=== PATIENT | female | born 1930 | race Caucasian/White ===

== ENCOUNTER 2017-06-03 05:15 | Inpatient (IN) ==
[2017-06-03] MEDS ORDERED: NS 1,000 ML IV ONE (05:21)
[2017-06-03] MEDS ORDERED: ALBUTEROL/IPRATROPIUM 2.5mg-0.5mg/3ml NEB AEROSOL ONE (05:21)
--- OUTSIDE RECORDS SUMMARY | 2017-06-03 05:23 | External Medical Summary | Clinical Summary ---
:1930 Author Organization [facility] Address [address] [place] [address] Phone Care Team Providers Name Role Phone Unavailable Primary Care Provider Unavailable Source Comments Some departments are not documenting in the electronic medical record. If you do not see the information that you expected, contact Release of Information in the Health Information Management department at [phone] for further assistance in locating additional records.[facility] Allergies Active Allergy Reactions Severity Noted Date Comments Cephalexin 02/28/2006 Allergy recorded in SMS: KEFLEX Cephalosporins 02/28/2006 Allergy recorded in SMS: Pcn/Cephalospor Codeine 02/28/2006 Allergy recorded in SMS: Codeine Erythromycin 02/28/2006 Allergy recorded in SMS: ERYTHROMYCIN Iodine 02/28/2006 Allergy recorded in SMS: Iodine Penicillins 02/28/2006 Allergy recorded in SMS: Pcn/Cephalospor Sulfa (Sulfonamide 02/28/2006 Allergy recorded in SMS: Antibiotics) Sulfa Social History Tobacco Use Types Packs/Day Years Used Date Never Assessed Sex Assigned at Date Recorded Not on file Plan of Treatment Health Maintenance Due Date Last Done Comments PHYSICAL (COMPREHENSIVE) EXAM 1937 PERTUSSIS VACCINE 1942 TETANUS VACCINE 1948 SHINGLES VACCINE 1991 OSTEOPOROSIS SCREENING 1996 PREVNAR/PNEUMOVAX (#1) 1996 INFLUENZA VACCINE 11/27/2016
--- NOTE | 2017-06-03 05:27 | Emergency Department Report ---
Asthma HPI - General Stated Complaint: soa <Matthew Wise Q - 06/03/17 07:11> Time Seen by Provider: 06/03/17 05:20 <Matthew Wise - 06/03/17 07:11> Source: patient, EMS <Evelio Valente - 06/03/17 05:28> Mode of arrival: EMS <Evelio Valente - 06/03/17 05:28> Limitations: no limitations <Evelio Valente - 06/03/17 05:28> - History of Present Illness HPI Narrative: Patient was seen in the ER 3 days ago, had a positive influenza test, and was treated with Tylenol in the ER for fevers and chills. Patient presented that they will cough, but apparently had normal vital signs, normal lung sounds, no further testing was done. Over the past 3 days the patient has worsened significantly, to the point that she is unable to lay flat without severe dyspnea. EMS found the patient be in significant respiratory distress with hypoxemia, but was alert and cooperative. While on supplemental oxygen, the patient's O2 saturation improved, but she continues to have significant difficulty breathing with cough and increasing dyspnea pulse supine. Patient has no baseline pulmonary issues, denying asthma COPD, CHF, or the use of any breathing treatments. <Evelio Valente - 06/03/17 05:28> - Related Data Home Medications Medication Instructions Recorded Confirmed Apixaban [Eliquis] 5 mg PO BID #0 04/13/16 06/03/17 Cholecalciferol [Vit. D-3] 1,000 unit PO DAILY #0 04/13/16 06/03/17 Gabapentin 300 mg PO QAM #0 04/13/16 06/03/17 Gabapentin 600 mg PO HS #0 04/13/16 06/03/17 Lutein/Zeaxanthin 1 cap PO DAILY 09/28/16 06/03/17 [Lutein-Zeaxanthin 25-5 mg Sfgl] Amiodarone HCl [Pacerone] 100 mg PO DAILY 05/31/17 06/03/17 Amlodipine [Norvasc] 2.5 mg PO DAILY 05/31/17 06/03/17 Furosemide [Lasix] 80 mg PO DAILY 05/31/17 06/03/17 Hydrocodone/APAP 7.5/325 [[place] 1 tab PO BID PRN 05/31/17 06/03/17 7.5/325] Metoprolol Tartrate [Lopressor] 25 mg PO HS 05/31/17 06/03/17 Potassium Chloride [Klor-Con M20] 20 meq PO DAILY 05/31/17 06/03/17 Pravastatin [Pravachol] 20 mg PO HS 05/31/17 06/03/17 Previous Rx's Medication Instructions Recorded Oseltamivir Cap [Tamiflu] 75 mg PO BID #10 cap 05/31/17 <Matthew Wise Q - 06/03/17 07:11> Allergies Allergy/AdvReac Type Severity Reaction Status Date / Time amoxicillin Allergy Unknown Verified 06/03/17 05:36 cephalexin Allergy Unknown Swelling Verified 06/03/17 05:36 of Lip/Tongue/Throat clavulanic acid Allergy Unknown Verified 06/03/17 05:36 [From Augmentin] erythromycin base Allergy Unknown HIVES Verified 06/03/17 05:36 etodolac Allergy Unknown Hives Verified 06/03/17 05:36 iodine Allergy Unknown IV AND Verified 06/03/17 05:36 SKIN-HIVES AND ITCHING minocycline Allergy Unknown UPSET Verified 06/03/17 05:36 STOMACH Sulfa (Sulfonamide Allergy Unknown HIVES Verified 06/03/17 05:36 Antibiotics) thyme Allergy Unknown Verified 06/03/17 05:36 <Matthew Wise Q - 06/03/17 07:11> Review of Systems All systems: reviewed and negative except as stated <Evelio Valente H - 05:28> [facility] Patient Stated Medical History Cerebrovascular Accident Yes: 2014-affected her balance Hypertension Yes Myocardial Infarction Yes: 2014 Pneumonia Yes: 2014 Clotting Problems Yes: TAKES ELIQUIS Other Musculoskeletal Yes: ARTHRITIS BILAT KNEES Blood Transfusions Yes: no known reaction Clinic Medical History (Last Reviewed 02/06/17 @ 20:23 by Serg Wiggins MD) Fibromyalgia (Chronic Medical) HTN (hypertension) (Chronic Medical) High cholesterol (Chronic Medical) Osteoarthritis (Chronic Medical) Myocardial infarct (Resolved Medical) Skin cancer (Resolved Medical) <Matthew Wise Q - 06/03/17 07:11> Surgical History: skin cancer removal from ankle with skin grafting. partial left mastectomy due to benign lump. hysterectomy, back surgery <Evelio Valente 06/03/17 05:28> - Social History Smoking status: Never smoker <AmbrosioEvelio 06/03/17 05:28> Physical Exam - Limitations Limitations: no limitations [facility] - General General appearance: alert, in distress (patient appears to be severely short of breath and weak) [facility]> - Normal Exams: Head:: Normocephalic without trauma <Ambrosio06/03/17 05:28> Eyes:: Pupils are PERRLA w/ EOMI, No scleral icterus, irritation, or foreign bodies noted <AmbrosioEvelio 06/03/17 05:28> ENMT:: No facial trauma, nasal exudates, pharyngeal erythema, or exudates are noted <AmbrosioEvelio 06/03/17 05:28> Neck:: Full range of motion, without adenopathy, JVD, bruits or thyromegaly < AmbrosioEvelio 06/03/17 05:28> Cardiovascular:: Regular rate and rhythm, without murmur or gallop, Pulses 2+ all extremities, capillary refill, <2 seconds all extremities <AmbrosioEvelio 06/03/17 05:28> Abdomen:: Bowel sounds positive, soft, non-tender, non-distended, no hepatosplenomegaly, masses or bruits noted <AmbrosioEvelio 06/03/17 05:28> Lymphatic:: No lymphadenopathy, or lymphedema noted [facility]> Musculoskeletal:: No tenderness, or deformity noted, good range of motion, all extremities <AmbrosioEvelio 06/03/17 05:28> Integumentary:: No rashes, hives, or bruising noted, hair and nails, without abnormality <AmbrosioEvelio 06/03/17 05:28> Neurological:: Patient is alert, and oriented, cranial nerves, motor/sensory/ cerebellar, exams w/o gross deficits, to observation <AmbrosioEvelio 06/03 05:28> Psychiatric:: Patient exhibits, appropriate attention, emotion and affect < Evelio Valente - 06/03/17 05:28> - Chest Chest inspection: Present: normal inspection, symmetric chest wall rise. Absent : tenderness <Evelio Valente - 06/03/17 05:28> - Respiratory Respiratory exam: Present: respiratory distress, wheezes, accessory muscle use, prolonged expiratory phase. Absent: normal lung sounds bilaterally (course wheezes and rhonchi bilaterally), stridor <Evelio Valente 06/03/17 05:28> Course Vital Signs Temperature 99.5 F 06/03/17 05:15 Pulse Rate 78 06/03/17 05:15 Respiratory Rate 28 H 06/03/17 05:15 Blood Pressure 141/64 H 06/03/17 05:15 Pulse Oximetry 79 L 06/03/17 05:15 Temperature 99.5 F 06/03/17 05:15 Pulse Rate 77 06/03/17 06:30 Respiratory Rate 24 06/03/17 05:25 Blood Pressure 144/98 H 06/03/17 06:30 Pulse Oximetry 95 06/03/17 06:30 <Evelio Valente - 06/03/17 05:24> Vital Signs Temperature 99.5 F 06/03/17 05:15 Pulse Rate 78 06/03/17 05:15 Respiratory Rate 28 H 06/03/17 05:15 Blood Pressure 141/64 H 06/03/17 05:15 Pulse Oximetry 79 L 06/03/17 05:15 Temperature 99.5 F 06/03/17 05:15 Pulse Rate 77 06/03/17 06:30 Respiratory Rate 24 06/03/17 05:25 Blood Pressure 144/98 H 06/03/17 06:30 Pulse Oximetry 95 06/03/17 06:30 <Matthew Wise - 06/03/17 07:11> Dyspnea - MDM Narrative Medical decision making narrative: CBC shows anemia 6.9 hemoglobin, did discuss with patient this appears to be a worsening chronic condition although she did have a hip replacement 04/02, and patient states she has had black tarry stools for 2 months CMP within limits lactate 1.7 chest x-ray shows a hazy opacity in the lower part of the left upper lobe. Discuss case with Dr. James, admit inpatient hypoxemia influenza anemia they will evaluate <Matthew Wise - 06/03/17 07:11> Patient is immediately given DuoNeb treatment times one, placed on supplemental oxygen CBC - CMP - Lactate - CXR - <Evelio Valente - 06/03/17 05:28> - Medical Records Attestation: I reviewed the patient's medical records. <Matthew Wise Q - 09/13 07:11> - Lab Data Attestation: I reviewed the patient's lab results. <Matthew Wise Q - 07:11> Result diagrams: 06/03/17 05:43 06/03/17 05:43 <Matthew Wise Q - 06/03/17 07:11> Lab Results 06/03/17 06/03/17 Range/Units 05:43 05:43 WBC 5.9 (4.5-11.0) T/MM3 RBC 3.50 L (4.00-5.20) M/MM3 Hgb 6.9 L (12-16) GM/DL Hct 23.7 L (36-46) % MCV 67.7 L (80-100) UM3 MCH 19.7 L (26-34) UUG MCHC 29.1 L (31-37) GM/DL RDW Std Deviation 41.6 (36.9-50.2) FL Plt Count 81 L (130-400) T/MM3 MPV 11.4 (9.4-12.4) UM3 Immature Gran % (Auto) Not performed Neut % (Auto) Not performed Lymph % (Auto) Not performed [place] % (Auto) Not performed Eos % (Auto) Not performed Baso % (Auto) Not performed Neut # (Auto) Not performed Lymph # (Auto) Not performed [place] # (Auto) Not performed Eos # (Auto) Not performed Baso # (Auto) Not performed Abs Immat Gran (auto) Not performed Neutrophils % (Manual) 73.0 H (33-66) % Lymphocytes % (Manual) 20.0 L (23-45) % Monocytes % (Manual) 5.0 (0-9.0) % Basophils % (Manual) 2.0 (0-2) % Neutrophils # (Manual) 4.3 (1.8-7.7) T/MM3 Lymphocytes # (Manual) 1.2 (1-4.8) T/MM3 Monocytes # (Manual) 0.3 (0-0.8) T/MM3 Basophils # (Manual) 0.1 (0-0.2) T/MM3 Poikilocytosis 1+ Microcytosis 1+ Ovalocytes 1+ Helmet Cells 1+ RBC Morph Comment Abnormal Turbidity < 20 (0-20) Sodium 141 (134-144) MEQ/L Potassium 4.2 (3.6-5) MEQ/L Chloride 105 (98-107) MEQ/L Carbon Dioxide 24 (22-30) MEQ/L Anion Gap 12 (5-15) MEQ/L BUN 18.0 H (7-17) MG/DL Creatinine 0.9 (0.7-1.2) MG/DL GFR Calculation 59 BUN/Creatinine Ratio 20 (6-26) RATIO Glucose 121 H (65-110) MG/DL Calculated Osmolality 274 (261-280) MOSM/KG Calcium 8.5 (8.4-10.2) MG/DL Total Bilirubin 1.20 (0.20-1.30) MG/DL Conjugated Bilirubin 0.00 (0.00-0.30) MG/DL Unconjugated Bilirubin 0.90 (0.00-1.1) MG/DL Icterus Index < 2 (0-7) AST 50 H (14-36) U/L ALT 29 (9-52) U/L Alkaline Phosphatase 77 (38-126) U/L Total Protein 6.9 (6.3-8.2) G/DL Albumin 3.8 (3.5-5.0) G/DL Globulin 3.1 (2.4-3.6) G/DL Albumin/Globulin Ratio 1.2 (1.1-2.2) RATIO Plasma Lactate 1.7 (0.6-2.2) MMOL/L Specimen Hemolysis < 15 (0-25) <Evelio Valente H - 06/03/17 05:24> Lab Results 06/03/17 06/03/17 Range/Units 05:43 05:43 WBC 5.9 (4.5-11.0) T/MM3 RBC 3.50 L (4.00-5.20) M/MM3 Hgb 6.9 L (12-16) GM/DL Hct 23.7 L (36-46) % MCV 67.7 L (80-100) UM3 MCH 19.7 L (26-34) UUG MCHC 29.1 L (31-37) GM/DL RDW Std Deviation 41.6 (36.9-50.2) FL Plt Count 81 L (130-400) T/MM3 MPV 11.4 (9.4-12.4) UM3 Immature Gran % (Auto) Not performed Neut % (Auto) Not performed Lymph % (Auto) Not performed [place] % (Auto) Not performed Eos % (Auto) Not performed Baso % (Auto) Not performed Neut # (Auto) Not performed Lymph # (Auto) Not performed [place] # (Auto) Not performed Eos # (Auto) Not performed Baso # (Auto) Not performed Abs Immat Gran (auto) Not performed Neutrophils % (Manual) 73.0 H (33-66) % Lymphocytes % (Manual) 20.0 L (23-45) % Monocytes % (Manual) 5.0 (0-9.0) % Basophils % (Manual) 2.0 (0-2) % Neutrophils # (Manual) 4.3 (1.8-7.7) T/MM3 Lymphocytes # (Manual) 1.2 (1-4.8) T/MM3 Monocytes # (Manual) 0.3 (0-0.8) T/MM3 Basophils # (Manual) 0.1 (0-0.2) T/MM3 Poikilocytosis 1+ Microcytosis 1+ Ovalocytes 1+ Helmet Cells 1+ RBC Morph Comment Abnormal Turbidity < 20 (0-20) Sodium 141 (134-144) MEQ/L Potassium 4.2 (3.6-5) MEQ/L Chloride 105 (98-107) MEQ/L Carbon Dioxide 24 (22-30) MEQ/L Anion Gap 12 (5-15) MEQ/L BUN 18.0 H (7-17) MG/DL Creatinine 0.9 (0.7-1.2) MG/DL GFR Calculation 59 BUN/Creatinine Ratio 20 (6-26) RATIO Glucose 121 H (65-110) MG/DL Calculated Osmolality 274 (261-280) MOSM/KG Calcium 8.5 (8.4-10.2) MG/DL Total Bilirubin 1.20 (0.20-1.30) MG/DL Conjugated Bilirubin 0.00 (0.00-0.30) MG/DL Unconjugated Bilirubin 0.90 (0.00-1.1) MG/DL Icterus Index < 2 (0-7) AST 50 H (14-36) U/L ALT 29 (9-52) U/L Alkaline Phosphatase 77 (38-126) U/L Total Protein 6.9 (6.3-8.2) G/DL Albumin 3.8 (3.5-5.0) G/DL Globulin 3.1 (2.4-3.6) G/DL Albumin/Globulin Ratio 1.2 (1.1-2.2) RATIO Plasma Lactate 1.7 (0.6-2.2) MMOL/L Specimen Hemolysis < 15 (0-25) <Matthew Wise 06/03/17 07:11> - Radiology Data Attestation: I reviewed the patient's radiology results. <Matthew Wise 07:11> Questionable left upper lobe infiltrate <Matthew Wise 06/03/17 07:11> Disposition Clinical Impression: Hypoxemia requiring supplemental oxygen, Influenza A Anemia Qualifiers: Anemia type: unspecified type Qualified Code(s): D64.9 - Anemia, unspecified <Matthew Wise 06/03/17 07:11> Disposition: 02 To [facility] [place] Acute Care <Matthew Wise 06/03/17 07:11> Condition: Stable <Matthew Wise 06/03/17 07:11> Instructions: <Matthew Wise 06/03/17 07:11> Prescriptions: No Action Cholecalciferol [Vit. D-3] 1,000 unit PO DAILY #0 Lutein/Zeaxanthin [Lutein-Zeaxanthin 25-5 mg Sfgl] 1 cap PO DAILY Potassium Chloride [Klor-Con M20] 20 meq PO DAILY Metoprolol Tartrate [Lopressor] 25 mg PO HS Pravastatin [Pravachol] 20 mg PO HS Hydrocodone/APAP 7.5/325 [[place] 7.5/325] 1 tab PO BID PRN PRN Reason: Pain Amiodarone HCl [Pacerone] 100 mg PO DAILY Gabapentin 300 mg PO QAM #0 Apixaban [Eliquis] 5 mg PO BID #0 Gabapentin 600 mg PO HS #0 Furosemide [Lasix] 80 mg PO DAILY Amlodipine [Norvasc] 2.5 mg PO DAILY Oseltamivir Cap [Tamiflu] 75 mg PO BID #10 cap <Matthew Wise Q - 06/03/17 07:11> Referrals: Hiram Staples MD [Family Provider] - <Matthew Wise Q - 06/03 07:11> Forms: <Matthew Wise - 06/03/17 07:11> Time of Disposition: 07:10 <Matthew Wise Q - 06/03/17 07:11> - Seen By: physician <Matthew Wise Q - 06/03/17 07:11>
[2017-06-03] MEDS: SALINE FLUSH 10ml SYRINGE IVF PRN (06:00)
[2017-06-03] MEDS ORDERED: BENZONATATE 100 MG CAPSULE PO ONE (06:09)
[2017-06-03] MEDS ORDERED: LEVOFLOXACIN PB 750 MG/150 ML BAG IV SCH (06:30)
[2017-06-03] MEDS ORDERED: NS FLUSH BAG 500ml IV PRN (08:06)
[2017-06-03 08:15] VITALS: BMI 27.5
--- NOTE | 2017-06-03 08:24 | XRay Report ---
Indication: cough, hypoxemia PROCEDURE: XR chest 2V: Encounter: Initial Comparison: 03/27/2017 Findings: There is scattered patchy somewhat nodular appearing interstitial parenchymal opacity primarily in the right upper and left mid perihilar region. There is some prominence of the right peritracheal soft tissues. There is mild tortuosity of the descending thoracic aorta. There is moderate calcification of the transverse thoracic aorta. Heart size is normal. Impression: Somewhat patchy and nodular interstitial parenchymal opacities primarily in the mid left mid and right upper lung. Consider chest CT without IV contrast for further evaluation to exclude underlying neoplasm. .
[2017-06-03] MEDS ORDERED: CODEINE PO ONE (08:42)
[2017-06-03] MEDS ORDERED: APAP PO PRN (08:42)
[2017-06-03] MEDS ORDERED: APAP PO ONE (08:42)
[2017-06-03] MEDS ORDERED: CODEINE PO PRN (08:42)
--- NOTE | 2017-06-03 08:53 | History & Physical Report ---
History of Present Illness Date: 06/03/17 Chief complaint: Hypoxia, Influenza HPI: Terri is a pleasant 87 yr old female who has had upper respiratory infection with persistent cough for 5 days. She was seen in the emergency room on 05/31/17 for evaluation of coughing. At that time she was found to have influenza A, and was started on Tamiflu. Over the past 2 days her symptoms have gotten progressively worse and she began feeling more short of breath. This morning she activated EMS, she was found to be significantly hypoxic at 79% on room air. Acute evaluation was performed in the emergency room. White count was found to be normal at 5.9, hemoglobin found to be significantly low at 6.9, hematocrit 23.7, platelet count 81 with 73% neutrophils. Chemistry panel unremarkable. Chest x-ray did reveal a interstitial opacity of unknown cause. She continued to require oxygen 2-3 liters to maintain adequate saturations. Given the severity of her hypoxia, the hospitalist services were contacted and accepted patient for inpatient admission for further evaluation and treatment. She is seen on initial examination. She is alert, oriented and pleasant. She has a persistent dry cough throughout entire examination. She is admit to feeling short of breath at times, however denies having any chest pain. She does complain of midthoracic back pain with intermittent generalized body aches. He also reports having black tarry stool for approximately 1-2 months. She did note recently there is blood present in the stool. She chronically does take Eliquis for anticoagulation given atrial fibrillation and history of CVA. Patient does report having anemia in the past following back surgery, she did require blood transfusion at that time. She reports that she was evaluated by a "blood doctor" years ago however he dismissed her. Did discuss advanced directives she does wish to be a full code. Review of Systems All systems PM: 10-point ROS was reviewed, no additional remarkable complaints except - Constitutional Constitutional: Present: fatigue, malaise, weakness - Respiratory Respiratory: Present: cough, dyspnea - Gastrointestinal Gastrointestinal: Present: melena - Musculoskeletal Musculoskeletal: Present: back pain Past Medical History Clinic Medical History Hx CVA A-fibulation- chronically on Eliquis Thrombocytopenia- ?ITP (chronically) Chronic diastolic heart failure Fibromyalgia HTN (hypertension) Hyperlipidemia Osteoarthritis Hx of IA History of squamous cell carcinoma Surgical History: Implantable loop recorder. skin cancer removal from ankle with skin grafting. partial left mastectomy due to benign lump. hysterectomy. Left Hip surgery- 03/2017. Lumbar back surgery- 1999 Family History Updates: Father-chronic kidney disease, CVA. Mother- of old age - Social History Smoking status: Former smoker Substance use type: does not use Alcohol intake frequency: does not drink Housing: house Household members: family Social history: Primary care provider, Dr. Staples Signaler, Dr. Bird Electrical Assembly Supervisor, Dr. Wyatt Medications Home Medications Medication Instructions Recorded Confirmed Type Apixaban [Eliquis] 5 mg PO BID #0 04/13/16 06/03/17 History Cholecalciferol [Vit. D-3] 1,000 unit PO DAILY #0 04/13/16 06/03/17 History Gabapentin 300 mg PO QAM #0 04/13/16 06/03/17 History Gabapentin 600 mg PO HS #0 04/13/16 06/03/17 History Lutein/Zeaxanthin 1 cap PO DAILY 09/28/16 06/03/17 History [Lutein-Zeaxanthin 25-5 mg Sfgl] Amiodarone HCl [Pacerone] 100 mg PO DAILY 05/31/17 06/03/17 History Amlodipine [Norvasc] 2.5 mg PO DAILY 05/31/17 06/03/17 History Furosemide [Lasix] 80 mg PO DAILY 05/31/17 06/03/17 History Hydrocodone/APAP 7.5/325 [[place] 1 tab PO BID PRN 05/31/17 06/03/17 History 7.5/325] Metoprolol Tartrate [Lopressor] 25 mg PO HS 05/31/17 06/03/17 History Potassium Chloride [Klor-Con M20] 20 meq PO DAILY 05/31/17 06/03/17 History Pravastatin [Pravachol] 20 mg PO HS 05/31/17 06/03/17 History Allergies Allergy/AdvReac Type Severity Reaction Status Date / Time amoxicillin Allergy Unknown Verified 06/03/17 05:36 cephalexin Allergy Unknown Swelling Verified 06/03/17 05:36 of Lip/Tongue/Throat clavulanic acid Allergy Unknown Verified 06/03/17 05:36 [From Augmentin] erythromycin base Allergy Unknown HIVES Verified 06/03/17 05:36 etodolac Allergy Unknown Hives Verified 06/03/17 05:36 iodine Allergy Unknown IV AND Verified 06/03/17 05:36 SKIN-HIVES AND ITCHING minocycline Allergy Unknown UPSET Verified 06/03/17 05:36 STOMACH Sulfa (Sulfonamide Allergy Unknown HIVES Verified 06/03/17 05:36 Antibiotics) thyme Allergy Unknown Verified 06/03/17 05:36 Exam Vital Signs: Temperature 98.7 F 06/03/17 08:08 Pulse Rate 75 06/03/17 08:08 Respiratory Rate 20 06/03/17 08:08 Blood Pressure 136/62 06/03/17 08:08 Pulse Oximetry 94 06/03/17 08:08 Height/Weight/BMI: Height 1.68 m Weight 77.4 kg Body Mass Index 27.5 - Constitutional Present: no acute distress, well nourished, well developed - Routine HEENT Exam Eye: Present: EOMI ENT: Present: mucous membranes moist, dentition normal - Routine Respiratory Exam Present: CTA bilaterally. Absent: wheezes - Routine Cardiovascular Exam Present: RRR, S1, S2. Absent: murmur - Routine Abdominal Exam Present: soft, normoactive bowel sounds, non distended. Absent: tenderness - Routine Extremities Exam Present: normal capillary refill - Routine Skin Exam Present: dry, warm - Routine Neurological Exam Present: alert, oriented X3, CN II-XII intact - Routine Psychiatric Exam Present: normal affect Results - Labs CBC & Chem 7: 06/03/17 05:43 06/03/17 05:43 Assessment and Plan (1) Acute respiratory failure with hypoxia Current visit: Yes Status: Acute (2) Influenza A Current visit: Yes Status: Acute (3) Anemia Problem details: microcytic Current visit: Yes Status: Acute Assessment and Plan: Impression Acute respiratory failure with hypoxemia. Anemia-present on admission, hemoglobin 6.9 Influenza A Thrombocytopenia- ? acute on chronic A-fibulation Hypertension Hyperlipidemia Fibromyalgia Chronic anticoagulation Plan Admit patient to inpatient status under care of Dr. James for acute respiratory failure with hypoxia and anemia Continue on oxygen to maintain adequate saturations. Will add scheduled DuoNeb breathing treatments 4 times a day. Did add oral Tylenol with codeine, even significant coughing as well as body aches. Will continue on Tamiflu for 3 additional days given Influenza A. End date . She did receive IV Levaquin while in the emergency room. Will discuss with attending regarding continuation of antibiotics. Given anemia, we will type and screen and give 1 unit packed red blood cells. Stop Eliquis. Obtain serum iron levels. Monitor PLT count- Chronically low. Followed by Dr Wyatt. ? ITP Monitor on cardiac telemetry SCDs to bilateral lower extremity for DVT prophylaxis. Patient does wish to be a full code and this orders written. Will discuss further orders and plan of care with attending, Dr James At time of discharge medical care is to return to PCP Dr Staples DVT Prophylaxis: SCD's Resuscitation Status: Full Code - Physician Narrative Physician: Alka James MD Narrative: Date: 06/03/17 Time: 1245 I have independently evaluated and examined this patient. I reviewed the chart, the patient's history, and the APPAREL RENTAL CLERK/PA's documented findings as above. We discussed and formulated the assessment and plan as above with additions as below: Mrs. Ovi Arana presented to the emergency room with difficulty breathing this morning 3 days after being diagnosed with influenza A. On arrival oxygen saturation was 79% on room air today. She's had a cough since the end of April with progressive dyspnea. She describes significant myalgias generalized body pain. Additionally she reports increasing fatigue and weakness and was found to have a hemoglobin of 6.9 with microcytic indices. She reports having bad diarrhea about a month ago stools have been black with occasional rectal bleeding over 3-4 months. Patient is chronically anticoagulated for atrial fibrillation. On exam the patient is alert and in no acute distress but has generalized pallor. There is chronic discoloration of the left distal pedersen and ankle; no edema Breath sounds are slightly coarse especially at the left base but no wheezing is appreciated and respirations were nonlabored time of my evaluation. Abdomen soft, nontender Hemoglobin 6.9, MCV 67.7, platelet count 81K--all lower than last available labs on 03/27/17 Chemistries unremarkable Chest x-ray reviewed by myself demonstrates no focal infiltrate but there are rounded/nodular opacities in the right upper and right mid lung field best seen on the lateral view. She received an initial dose of Levaquin in the emergency room-I don't believe ongoing antibiotics will be needed based on known viral respiratory infection and lack of focal infiltrate on x-ray. Rounded densities in the right lung-CT imaging to be obtained. Continue Tamiflu, oxygen, breathing treatments, supportive care. CT chest as above. Transfuse 1 unit PRBC; may require additional blood after hydrated. Iron studies pending but MCV suggests iron deficiency. Check Hemoccults-history consistent with chronic GI blood loss. Patient's brother Ahmet Baltazar is the patient's alternate decision maker; full code. Hospital Course Summary Disclaimer: The visit summary below is not to be considered part of the above Progress Note. Hospital Course: Acute respiratory failure with hypoxemia. Anemia, microcytic-present on admission, hemoglobin 6.9 Influenza A Thrombocytopenia- ? acute on chronic A-fibulation Hypertension Hyperlipidemia Fibromyalgia Chronic anticoagulation Plan Admit patient to inpatient status under care of Dr. James for acute respiratory failure with hypoxia and anemia Continue on oxygen to maintain adequate saturations. Will add scheduled DuoNeb breathing treatments 4 times a day. Did add oral Tylenol with codeine, even significant coughing as well as body aches. Will continue on Tamiflu for 3 additional days given Influenza A. End date . She did receive IV Levaquin while in the emergency room. Will not continue since known viral process. Given anemia, we will type and screen and give 1 unit packed red blood cells. Stop Eliquis. Obtain serum iron levels. Monitor PLT count- Chronically low. Followed by Dr Wyatt. ? ITP Monitor on cardiac telemetry SCDs to bilateral lower extremity for DVT prophylaxis. Patient does wish to be a full code and this orders written. CT chest for eval of abn on CXR. At time of discharge medical care is to return to PCP Dr Staples
[2017-06-03] MEDS ORDERED: HYDROCODONE/APAP 7.5 MG/325 MG TABLET PO PRN (09:03)
[2017-06-03] MEDS: NS 1,000 ML IV SCH ×4 (09:11→22:04)
[2017-06-03] MEDS: ALBUTEROL/IPRATROPIUM 2.5mg-0.5mg/3ml NEB AEROSOL SCH ×3 (10:13→18:11)
[2017-06-03] MEDS: AMLODIPINE 2.5 MG TABLET PO SCH (10:22)
[2017-06-03] MEDS: AMIODARONE 200 MG TABLET PO SCH (10:22)
[2017-06-03] MEDS: BENZONATATE 200 MG CAPSULE PO PRN (16:07)
--- NOTE | 2017-06-03 16:46 | General Surgery Consult Note ---
Consult date: 06/03/17 Attending Physician: Alka James MD Reason for consult: endoscopy (Anemia) REPLACED BY [facility] Patient Stated Medical History Cerebrovascular Accident Yes: 2014-affected her balance Dental Problems Yes: dentures/partial Coronary Artery Disease Yes Hypertension Yes Myocardial Infarction Yes: 2015 Pneumonia Yes: 2015 Hx Urinary Tract Infection Yes Clotting Problems Yes: TAKES ELIQUIS Other Musculoskeletal Yes: ARTHRITIS BILAT KNEES Blood Transfusions Yes: no known reaction Clinic Medical History (Last Reviewed 02/06/17 @ 20:23 by Serg Wiggins MD) Fibromyalgia (Chronic Medical) HTN (hypertension) (Chronic Medical) High cholesterol (Chronic Medical) Osteoarthritis (Chronic Medical) Myocardial infarct (Resolved Medical) Skin cancer (Resolved Medical) Surgical History: Implantable loop recorder. skin cancer removal from ankle with skin grafting. partial left mastectomy due to benign lump. hysterectomy. Left Hip surgery- 03/2017. Lumbar back surgery- 1999 Family History: Father-chronic kidney disease, CVA. Mother- of old age - Social History Smoking status: Former smoker Medications Home Medications Medication Instructions Recorded Confirmed Type Apixaban [Eliquis] 5 mg PO BID #0 04/13/16 06/03/17 History Cholecalciferol [Vit. D-3] 1,000 unit PO DAILY #0 04/13/16 06/03/17 History Gabapentin 300 mg PO QAM #0 04/13/16 06/03/17 History Gabapentin 600 mg PO HS #0 04/13/16 06/03/17 History Lutein/Zeaxanthin 1 cap PO DAILY 09/28/16 06/03/17 History [Lutein-Zeaxanthin 25-5 mg Sfgl] Amiodarone HCl [Pacerone] 100 mg PO DAILY 05/31/17 06/03/17 History Amlodipine [Norvasc] 2.5 mg PO DAILY 05/31/17 06/03/17 History Furosemide [Lasix] 80 mg PO DAILY 05/31/17 06/03/17 History Hydrocodone/APAP 7.5/325 [[place] 1 tab PO BID PRN 05/31/17 06/03/17 History 7.5/325] Metoprolol Tartrate [Lopressor] 25 mg PO HS 05/31/17 06/03/17 History Potassium Chloride [Klor-Con M20] 20 meq PO DAILY 05/31/17 06/03/17 History Pravastatin [Pravachol] 20 mg PO HS 05/31/17 06/03/17 History Allergies Allergy/AdvReac Type Severity Reaction Status Date / Time amoxicillin Allergy Unknown Verified 06/03/17 05:36 cephalexin Allergy Unknown Swelling Verified 06/03/17 05:36 of Lip/Tongue/Throat clavulanic acid Allergy Unknown Verified 06/03/17 05:36 [From Augmentin] erythromycin base Allergy Unknown HIVES Verified 06/03/17 05:36 etodolac Allergy Unknown Hives Verified 06/03/17 05:36 iodine Allergy Unknown IV AND Verified 06/03/17 05:36 SKIN-HIVES AND ITCHING minocycline Allergy Unknown UPSET Verified 06/03/17 05:36 STOMACH Sulfa (Sulfonamide Allergy Unknown HIVES Verified 06/03/17 05:36 Antibiotics) thyme Allergy Unknown Verified 06/03/17 05:36 Review of Systems 10-point ROS: negative except for HPI and the following: - General General: Present: other (fatigue, malaise) - Cardiovascular Cardiovascular: Present: irregular heart beat (a-fib) - Respiratory Respiratory: Present: difficulty breathing, cough - Gastrointestinal Gastrointestinal: Present: blood in stools (and black stools) - Musculoskeletal Musculoskeletal: Present: back pain - Hematologic/Lymphatic Hematologic/Lymphatic: Present: easy bruising, use of blood thinners (history of CVA and a-fib) - Vital Signs Last Vital Signs Temp 98.7 F 06/03/17 08:08 Pulse 81 06/03/17 15:40 Resp 18 06/03/17 15:40 BP 146/69 H 06/03/17 15:40 Pulse Ox 96 06/03/17 15:40 - Laboratory Result Diagrams: 06/03/17 13:16 06/03/17 05:43 General Surgery Results - Results Labs: 06/03/17 13:16 Hospital Course Summary Disclaimer: The visit summary below is not to be considered part of the above Progress Note. Hospital Course: Acute respiratory failure with hypoxemia. Anemia, microcytic-present on admission, hemoglobin 6.9 Influenza A Thrombocytopenia- ? acute on chronic A-fibulation Hypertension Hyperlipidemia Fibromyalgia Chronic anticoagulation Plan Admit patient to inpatient status under care of Dr. James for acute respiratory failure with hypoxia and anemia Continue on oxygen to maintain adequate saturations. Will add scheduled DuoNeb breathing treatments 4 times a day. Did add oral Tylenol with codeine, even significant coughing as well as body aches. Will continue on Tamiflu for 3 additional days given Influenza A. End date . She did receive IV Levaquin while in the emergency room. Will not continue since known viral process. Given anemia, we will type and screen and give 1 unit packed red blood cells. Stop Eliquis. Obtain serum iron levels. Monitor PLT count- Chronically low. Followed by Dr Wyatt. ? ITP Monitor on cardiac telemetry SCDs to bilateral lower extremity for DVT prophylaxis. Patient does wish to be a full code and this orders written. CT chest for eval of abn on CXR. At time of discharge medical care is to return to PCP Dr Staples
[2017-06-03] MEDS: PANTOPRAZOLE 40 MG INJECTION IVP SCH (18:07)
[2017-06-03] MEDS ORDERED: PROMETHAZINE/CODEINE ORAL LIQUID 5ml PO PRN (18:45)
[2017-06-03] MEDS: MethylPREDNISolone 4 MG TABLET PO SCH (19:18)
[2017-06-03] MEDS: HYDROCODONE/CHLORPHENIRAMINE ER ORAL LIQ 5ml PO PRN (19:26)
[2017-06-03] MEDS: GABAPENTIN 300 MG CAPSULE PO SCH (21:08)
[2017-06-03] MEDS: PRAVASTATIN 20 MG TABLET PO SCH (21:09)
[2017-06-03] MEDS ORDERED: FALL RISK - PHARMACY CONSULT MC ONE (21:16)
[2017-06-04] MEDS: MethylPREDNISolone 4 MG TABLET PO SCH ×2 (06:13→18:45)
--- NOTE | 2017-06-04 07:26 | Consultation ---
DATE OF CONSULTATION 06/03/2017 FINDINGS Mrs. Dior is an 87-year-old female whom I was asked to see today as a result of her history for rectal bleeding. The patient is known my surgical practice, but it has been quite some time since I have seen her. The patient informs me that she recently has developed a respiratory illness/flu requiring hospitalization. The patient was coughing every 10-15 seconds during the interview process. She was on some supplemental oxygen. I then focused our discussion more towards her history for rectal bleeding. The patient informs me that for the last month or more she has noted that her stools have been more "black and tarry." The patient states that she initially had thought this may be secondary to something that she had eaten. The patient states in hindsight she may have been actually bleeding. The patient states that yesterday she did pass a fair amount of bright red blood per rectum. The patient states that earlier today she also had passed some bright red blood per rectum. The patient states this afternoon the bleeding has subsided. She denies any recent significant nonsteroidal use such as use of aspirin or ibuprofen. She is on "blood thinners" as a result of her history for a CVA and A-fib. The patient states that she does not really remember the last time that she had a colonoscopy but it has been "a number of years ago." The patient denies prior history for peptic ulcer disease. The patient states that the "last drop of alcohol" she had was about 3 months ago. She denies any history for significant alcohol use. PAST MEDICAL HISTORY Performed by my nurse practitionerJed. PAST SURGICAL HISTORY Performed by my nurse practitionerJed. MEDICATIONS Performed by my nurse practitionerJed. ALLERGIES Performed by my nurse practitionerJed. SOCIAL HISTORY Performed by my nurse practitionerJed. FAMILY HISTORY Performed by my nurse practitionerJed. REVIEW OF SYSTEMS Performed by my nurse practitionerJed. PHYSICAL EXAMINATION Mrs. Dior is an 87-year-old female who did not appear to be in acute distress but was coughing quite frequently during the interview process as stated above. VITALS: Temperature 98.7, pulse 81, respirations 18, blood pressure 146/69, SaO2 96% on 2 liters per nasal cannula.. HEENT: Normocephalic. Pupils are equal, round and reactive to light and accommodation. CHEST: Auscultation of the chest revealed a few rales. Breath sounds otherwise were clear and equal. HEART: Rate and rhythm. I did not appreciate murmur. ABDOMEN: Palpation of the abdomen revealed it to be soft and completely nontender. There was no evidence for guarding or rebound. I did not appreciate any evidence for hepatosplenomegaly or other abnormal masses. EXTREMITIES: Without clubbing, cyanosis, or edema. NEURO: Cranial nerves II-XII grossly intact. Patient is without focal motor or sensory deficits. LABORATORY/RADIOGRAPH EVALUATION The patient had a hemoglobin obtained earlier this morning that was 6.9. This afternoon following blood transfusion she has had repeat hemoglobin of 7.8. Mean cell volume is low at 67.7. CMP was obtained and found to be essentially within normal limits. Stool has been found to be Hemoccult positive. Patient informs me that a CT scan of her chest has been ordered tomorrow. I do see that iron studies have also been ordered. ASSESSMENT 87-year-old female with influenza A with associated hypoxia, persistent cough. PLAN I do agree with the current management of this patient. From reviewing her medication list, I do not see that she is being treated empirically for peptic ulcer disease. Will put her on Protonix 40 mg IV. Will recheck CBC tomorrow. If the patient would stabilize from a respiratory/pulmonary standpoint, then at that time may wish to proceed with bidirectional endoscopy given her history for hematochezia and questionable history for melena. At this time, with her persistent cough and influenza, would rather the patient become a little more medically stable before proceeding with endoscopic evaluation. Will also await results of CT scan of chest being performed tomorrow. [place]
[2017-06-04] MEDS ORDERED: DiphenhydrAMINE 25 MG CAPSULE PO ONE (08:00)
[2017-06-04] MEDS: AMIODARONE 200 MG TABLET PO SCH (08:38)
[2017-06-04] MEDS: GABAPENTIN 300 MG CAPSULE PO SCH ×2 (08:38→21:34)
[2017-06-04] MEDS: NS 1,000 ML IV SCH ×2 (08:39→22:15)
[2017-06-04] MEDS: AMLODIPINE 2.5 MG TABLET PO SCH (08:39)
[2017-06-04] MEDS: PANTOPRAZOLE 40 MG INJECTION IVP SCH (08:40)
[2017-06-04] MEDS ORDERED: FUROSEMIDE 40 MG TABLET PO SCH (09:00)
[2017-06-04] MEDS ORDERED: SALINE FLUSH 10ml SYRINGE ONE (09:04)
[2017-06-04] MEDS ORDERED: IOHEXOL 300mg/ml 75ml INJECTION ONE (09:04)
--- NOTE | 2017-06-04 10:44 | CT Scan Report ---
Indication: rounded densities right lung PROCEDURE: CT chest w con: Encounter: Initial Comparison: Chest x-ray dated June 03, 2017 Technique: Axial CT images were performed through the chest after the administration of intravenous contrast. Coronal and sagittal two-dimensional reformats. Automated Exposure Control and Iterative Reconstruction dose reducing techniques were utilized. Contrast: Omnipaque 300 62 mL Findings: Groundglass opacity seen scattered throughout both lungs with a seemingly randomly distributed and. Small bilateral pleural effusions. No pneumothorax. No lobar consolidation. No dominant pulmonary nodules or masses. The central airways are patent. No axillary adenopathy. There is a cystic lesion in the right posterior paravertebral mediastinum best seen on axial image #21 measuring 3.3 cm in diameter. This could represent a neurogenic tumor or duplication cyst. Mildly prominent right paratracheal lymph nodes are present that could be reactive. Heart is mildly enlarged without pericardial effusion. Atherosclerotic plaque in the great vessel origins. The upper abdomen shows no acute findings. There is atrophy of the pancreatic tail. Impression: 1. Bilateral groundglass opacities most likely representing pulmonary edema given the small effusions. Less likely etiologies include hypersensitivity pneumonitis/drug reaction and pulmonary alveolar proteinosis. 2. 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 .
--- NOTE | 2017-06-04 14:11 | Progress Note ---
- Date 06/04/17 Subjective: Terri is seen this morning in follow up. She reports that she continues to feel worn out and dyspneic with minimal exertion. She is currently on 4 liters of oxygen by nasal cannula to maintain saturations. She denies having chest pain, abdominal pain or nausea. It Is reported that she did have a small darker red bowel movement early this morning. Hgb 7 today. Objective Vital signs: Temperature 97.2 F 06/04/17 08:00 Pulse Rate 68 06/04/17 08:00 Respiratory Rate 18 06/04/17 10:25 Blood Pressure 140/65 H 06/04/17 08:00 Pulse Oximetry 96 06/04/17 10:25 Height/Weight/BMI: Height 1.68 m Weight 78.4 kg Body Mass Index 27.5 - Constitutional Present: well nourished, well developed - Routine HEENT Exam Eye: Present: EOMI ENT: Present: mucous membranes moist, dentition normal - Routine Respiratory Exam Present: wheezes Comments: Crackles - Routine Cardiovascular Exam Present: RRR, S1, S2. Absent: murmur - Routine Abdominal Exam Present: soft, normoactive bowel sounds, non distended. Absent: tenderness - Routine Extremities Exam Present: normal capillary refill - Routine Skin Exam Present: intact, dry, warm - Routine Neurological Exam Present: alert, oriented X3, CN II-XII intact, moving all extremities - Routine Lymphatic Exam Lymphatic: Absent: adenopathy - Routine Psychiatric Exam Present: normal affect, cooperative Results - Labs CBC & Chem 7: 06/04/17 15:23 06/04/17 01:11 Assessment and Plan (1) Influenza A Current visit: Yes Status: Acute (2) Anemia Problem details: microcytic Current visit: Yes Status: Acute (3) Acute respiratory failure with hypoxia Current visit: Yes Status: Acute Assessment and Plan: Impression Acute respiratory failure with hypoxemia. Anemia-present on admission, hemoglobin 6.9 Influenza A GI bleed-RLL 06/04/17 Thrombocytopenia- ? acute on chronic A-fibulation Hypertension Hyperlipidemia Fibromyalgia Chronic anticoagulation Plan Hgb remains low at 7.0- Transfusion on 1 unit of PRBCs today CT of the chest done this morning reveling opacity throughout bilaterally, exact etiology is unclear Continued hypoxia requiring 4 liters with crackles and wheezing. Overall coughing seems to be improved on Tessalon pearls and Tussionex syrup Continued nebulizers scheduled She continues on Tamiflu, course will end tomorrow 06/05. Continued blood in stool. Appreciate Dr. Lopez's consultation. Continue to follow blood counts carefully, continued thrombocytopenia Case discussed with attending, Dr James DVT Prophylaxis: SCD's GI Prophylaxis: Protonix Resuscitation Status: Full Code - Physician Narrative Physician: Alka James MD Narrative: Date: 06/04/17 Time: 1714 I have independently evaluated and examined this patient. I reviewed the chart, the patient's history, and the AIRPLANE [employer]/PA's documented findings as above. We discussed and formulated the assessment and plan as above with additions as below: Terri reports no bowel movements overnight but that she's had several loose stools today with red blood mixed in them. She denies dyspeptic symptoms but reports food tastes good today for the first time in a while. She continues to have nonproductive cough and require supplemental oxygen. She is losing her voice. Oxygen saturation 93% with 3 L supplemental O2 on; blood pressure moderately elevated. Respirations nonlabored with slightly coarse breath sounds bilaterally anteriorly/posteriorly Regular rhythm, S1-S2 Abdomen soft, mild generalized tenderness-possibly greater in the right upper quadrant than elsewhere, no guarding CT of the chest reviewed by myself and reviewed with Dr. Sharp-diffuse groundglass infiltrates in both lungs but greater on the right, cystic lesion along the medial sternal border in the right upper lung measuring 3 cm and reviewing old chest x-rays this is been present and stable going back to at least 2010. Patient advised of stability of the cystic lesion. Telemetry strips reviewed by myself-sinus rhythm without tachycardia. One additional unit packed red blood cells given today with posttransfusion hemoglobin 8.9-continue to monitor. Will decrease frequency of hemoglobins to every 12 hours. Continue protonix for possible peptic disease. Endoscopic evaluation anticipated in the near future. Iron studies pending. Blood pressure is borderline high-continue to monitor that may require addition of therapy. Hospital Course Summary Disclaimer: The visit summary below is not to be considered part of the above Progress Note. Hospital Course: Acute respiratory failure with hypoxemia. Anemia, microcytic-present on admission, hemoglobin 6.9 Influenza A Thrombocytopenia- ? acute on chronic A-fibulation Hypertension Hyperlipidemia Fibromyalgia Chronic anticoagulation Plan Admit patient to inpatient status under care of Dr. James for acute respiratory failure with hypoxia and anemia Continue on oxygen to maintain adequate saturations. Will add scheduled DuoNeb breathing treatments 4 times a day. Did add oral Tylenol with codeine, even significant coughing as well as body aches. Will continue on Tamiflu for 3 additional days given Influenza A. End date . She did receive IV Levaquin while in the emergency room. Will not continue since known viral process. Given anemia, we will type and screen and give 1 unit packed red blood cells. Stop Eliquis. Obtain serum iron levels. Monitor PLT count- Chronically low. Followed by Dr Wyatt. ? ITP Monitor on cardiac telemetry SCDs to bilateral lower extremity for DVT prophylaxis. Patient does wish to be a full code and this orders written. CT chest for eval of abn on CXR. At time of discharge medical care is to return to PCP Dr Staples 06/04 Hgb remains low at 7.0- Transfusion on 1 unit of PRBCs today CT of the chest done this morning reveling opacity throughout bilaterally, exact etiology is unclear Continued hypoxia requiring 4 liters with crackles and wheezing. Overall coughing seems to be improved on Tessalon pearls and Tussionex syrup Continued nebulizers scheduled She continues on Tamiflu, course will end tomorrow 06/05. Continued blood in stool. Appreciate Dr. Lopez's consultation. Continue to follow blood counts carefully, continued thrombocytopenia Case discussed with attending, Dr James
[2017-06-04] MEDS: PRAVASTATIN 20 MG TABLET PO SCH (21:34)
[2017-06-05] MEDS: BENZONATATE 200 MG CAPSULE PO PRN ×2 (00:13→10:37)
--- NOTE | 2017-06-05 08:15 | Progress Note ---
DATE 06/04/2017 FINDINGS Mrs. Dior was seen earlier today on rounds. She was not coughing nearly as much as she had yesterday. She stated that she did have a bloody stool earlier this morning. She denied any significant abdominal pain. VITALS: Temperature 96.2. Pulse 73. Respirations 18. Blood pressure 167/71, SaO2 93% on 3 liters per nasal cannula.. CHEST: Clear to auscultation bilaterally. HEART: Regular rate and rhythm. Normal S1 and S2 without gallops, murmurs or clicks. ABDOMEN: Palpation of the abdomen reveals it to be soft and nontender. I do not appreciate any evidence for hepatosplenomegaly or abnormal masses. LABORATORY/RADIOGRAPH EVALUATION The patient had a CBC today and her hemoglobin was 7.0 earlier. She did receive a blood transfusion and a repeat hemoglobin revealed improvement at 8.9. She did have a CT scan of her chest obtained earlier today. CT scan of her chest revealed bilateral ground-glass opacities most likely representing pulmonary edema in conjunction with some small effusions. The patient also had a cystic lesion noted within the posterior mediastinum which could be a duplication cyst or a neurogenic tumor. ASSESSMENT 87-year-old female with influenza A with associated hypoxia. Patient with history of melena and hematochezia requiring blood transfusions. PLAN I do feel the patient would benefit from upper and lower endoscopy. I would like for the patient to continue to improve from a pulmonary standpoint before proceeding with endoscopic evaluation. Will reassess the patient tomorrow and perhaps proceed with bowel prep tomorrow and bidirectional endoscopy on . Will "touch base" with the hospitalist tomorrow and discuss Mrs. Dior's case. DENTON
[2017-06-05] MEDS: PANTOPRAZOLE 40 MG INJECTION IVP SCH (08:40)
[2017-06-05] MEDS: AMLODIPINE 2.5 MG TABLET PO SCH (08:40)
[2017-06-05] MEDS: HYDROCODONE/CHLORPHENIRAMINE ER ORAL LIQ 5ml PO PRN (08:40)
[2017-06-05] MEDS: GABAPENTIN 300 MG CAPSULE PO SCH ×2 (08:40→20:07)
[2017-06-05] MEDS: AMIODARONE 200 MG TABLET PO SCH (08:41)
[2017-06-05] MEDS: NS 1,000 ML IV SCH ×2 (08:43→16:39)
[2017-06-05] MEDS ORDERED: HYDROCODONE/CHLORPHENIRAMINE ER ORAL LIQ 5ml PO ONE (11:21)
[2017-06-05] MEDS ORDERED: MENTHOL COUGH DROPS (RICOLA) MM PRN (14:18)
[2017-06-05] MEDS ORDERED: FUROSEMIDE 20 MG/2 ML INJECTION IVP ONE (14:25)
--- NOTE | 2017-06-05 15:26 | Progress Note ---
- Date 06/05/17 Subjective: Terri isn't doing as well today. Her oxygen requirements have increased from 3L yesterday, up to 12L, now 8L. She had a 6-hour coughing fit earlier this morning that wore her out. She also had severe abdominal pain under her rib cage , which has since resolved. She feels bloated, and states that she passed blood without stool on 06/03 and 06/04 -- no bm today. She feels weak overall but denies dizziness. She feels achy all over, but states this could be r/t her arthritis. Objective Vital signs: Temperature 97.3 F 06/05/17 14:45 Pulse Rate 72 06/05/17 14:45 Respiratory Rate 18 06/05/17 14:45 Blood Pressure 159/67 H 06/05/17 14:45 Pulse Oximetry 92 06/05/17 14:45 Rhythm: Normal Sinus Rhythm Height/Weight/BMI: Height 1.68 m Weight 82.1 kg Body Mass Index 27.5 - Constitutional Present: well nourished, well developed - Routine HEENT Exam Head: Present: normocephalic Eye: Present: PERRL. Absent: conjunctival icterus, scleral injection - Routine Respiratory Exam Present: rales, wheezes - Routine Cardiovascular Exam Present: RRR, S1, S2 - Routine Abdominal Exam Present: distended. Absent: normoactive bowel sounds (hypoactive) - Routine Extremities Exam Present: no edema, pulses intact - Routine Skin Exam Present: intact, dry, warm - Routine Neurological Exam Present: alert, oriented X3, normal speech - Routine Psychiatric Exam Present: normal affect, normal thought process, cooperative Results - Labs CBC & Chem 7: 06/05/17 15:40 06/05/17 04:09 Assessment and Plan (1) Influenza A Current visit: Yes Status: Acute (2) Anemia Problem details: microcytic Current visit: Yes Status: Acute (3) Acute respiratory failure with hypoxia Current visit: Yes Status: Acute Assessment and Plan: Impression Acute respiratory failure with hypoxemia. Anemia-present on admission, hemoglobin 6.9, s/p PRBC transfusion. Influenza A GI bleed Thrombocytopenia- ? acute on chronic A-fib Hypertension Hyperlipidemia Fibromyalgia Chronic anticoagulation Plan Sig. increase in oxygen requirement combined with 5+ kg weight gain --> IVF dc' d and Lasix IV ordered for diuresis. CT scan chest yesterday supports pulmonary edema with groundglass opacities. CXR ordered, personally reviewed -- severe pulm edema. Abdominal distention, GI bleed -- Dr. Lopez has been consulted & recommends bidirectional endoscopy. Start MiraLAX and Senna Plus. Cont PPI. WBC increased to 15 (? stress rxn). Hgb 9.0 s/p transfusion. Plt improved to 72. Anticoagulation contraindicated. Tamiflu course completed today. D/W Dr. Jaems. DVT Prophylaxis: SCD's GI Prophylaxis: Protonix Resuscitation Status: Full Code - Physician Narrative Physician: Alka James MD Narrative: Date: 06/05/17 Time: 1600 I have independently evaluated and examined this patient. I reviewed the chart, the patient's history, and the [employer] MAN/PA's documented findings as above. We discussed and formulated the assessment and plan as above with additions as below: Terri reports having an episode of epistaxis last night in addition to increasing dyspnea followed by prolonged coughing paroxysm was associated hypoxia this morning. She has minimal sputum production but has been wheezing occasionally today. She's had nausea but no vomiting; she is able to tolerate liquids but has had minimal solid food. She's had no further bloody stools. The only thing that seems to help her cough is sucking on ice chips. Alert, intermittent coughing, appears fatigued Respirations are moderately labored with faint wheezes in the anterior robert and crackles at the bases posteriorly Regular rhythm, low-grade tachycardia, trace edema at the ankles Portable chest x-ray reviewed by myself demonstrating increasing diffuse infiltrates bilaterally but not typical pulmonary edema pattern Leukocytosis likely due to Decadron received prior to IV contrast for CT yesterday Weight up 11 pounds from admission Additional Lasix given now; blood gas being obtained. Add Solu-Medrol for pulmonary inflammation. Radiographic appearance worrisome--> involving respiratory failure. Hemoglobin stable over past 24 hours, discussed with Dr. Lopez and will defer further testing until patient is medically stable. Hospital Course Summary Disclaimer: The visit summary below is not to be considered part of the above Progress Note. Hospital Course: Acute respiratory failure with hypoxemia. Anemia, microcytic-present on admission, hemoglobin 6.9 Influenza A Thrombocytopenia- ? acute on chronic A-fibulation Hypertension Hyperlipidemia Fibromyalgia Chronic anticoagulation Plan Admit patient to inpatient status under care of Dr. James for acute respiratory failure with hypoxia and anemia Continue on oxygen to maintain adequate saturations. Will add scheduled DuoNeb breathing treatments 4 times a day. Did add oral Tylenol with codeine, even significant coughing as well as body aches. Will continue on Tamiflu for 3 additional days given Influenza A. End date . She did receive IV Levaquin while in the emergency room. Will not continue since known viral process. Given anemia, we will type and screen and give 1 unit packed red blood cells. Stop Eliquis. Obtain serum iron levels. Monitor PLT count- Chronically low. Followed by Dr Wyatt. ? ITP Monitor on cardiac telemetry SCDs to bilateral lower extremity for DVT prophylaxis. Patient does wish to be a full code and this orders written. CT chest for eval of abn on CXR. At time of discharge medical care is to return to PCP Dr Staples 06/04 Hgb remains low at 7.0- Transfusion on 1 unit of PRBCs today CT of the chest done this morning reveling opacity throughout bilaterally, exact etiology is unclear Continued hypoxia requiring 4 liters with crackles and wheezing. Overall coughing seems to be improved on Tessalon pearls and Tussionex syrup She continues on Tamiflu, course will end tomorrow 06/05. Continued blood in stool. Appreciate Dr. Lopez's consultation. Continue to follow blood counts carefully, continued thrombocytopenia 06/05 Sig. increase in oxygen requirement combined with 5+ kg weight gain --> IVF dc' d and Lasix IV ordered for diuresis. CT scan chest yesterday supports pulmonary edema with groundglass opacities. CXR ordered, personally reviewed -- severe pulm edema. Abdominal distention, GI bleed -- Dr. Lopez has been consulted & recommends bidirectional endoscopy. Start MiraLAX and Senna Plus. Cont PPI. WBC increased to 15 (? stress rxn). Hgb 9.0 s/p transfusion. Plt improved to 72. Anticoagulation contraindicated. Tamiflu course will be completed today.
--- NOTE | 2017-06-05 15:49 | XRay Report ---
Indication: acute hypoxic resp failure PROCEDURE: XR chest 1V: Encounter: Initial Comparison: Chest CT dated June 04, 2017 Findings: Worsening severe diffuse airspace consolidation. Small pleural effusions are more prominent. No pneumothorax. Cardiac silhouette remains mildly enlarged. Mediastinal contours are stable. Pulmonary vascularity is obscured by the diffuse infiltrates. Impression: Worsening severe bilateral airspace consolidation could represent edema or infection. ARDS/diffuse alveolar damage can have this same appearance but is less likely given the lack of an endotracheal tube. .
[2017-06-05] MEDS: POLYETHYL GLYCOL 3350 17gm PACKET PO SCH (16:38)
[2017-06-05] MEDS: METHYLPREDNISOLONE SOD SUCC 125mg/2ml INJECTION IVP SCH ×2 (17:23→20:05)
--- NOTE | 2017-06-05 18:33 | Progress Note ---
DATE OF SERVICE 06/05/2017 FINDINGS Mrs. Ovi Arana was seen this evening on rounds. She informs me that she has had a "bad day of coughing." Patient informs me that she has coughed for about "five to six hours straight." During the exam process fortunately she was not coughing frequently. PHYSICAL EXAM VITAL SIGNS: Temperature 97.3, pulse 72, respirations 18, blood pressure 159/67 , SAO2 92% on the 8 liters. HEENT: Normocephalic. Pupils are equally round and react to light and accommodation. CHEST: Coarse breath sounds bilaterally. A few rales were noted. HEART: Regular rate and rhythm. ABDOMEN: Soft, nontender. LABORATORY/RADIOGRAPHIC EVALUATION The patient had a repeat CBC today and her hemoglobin remains stable at 9.0. BMP obtained and found to be without marked abnormalities. BUN was slightly elevated at 20.0. Chloride was slightly low at 112. ASSESSMENT 87-year-old female associated respiratory insufficiency/hypoxia. PLAN While in the office today I did have my staff try to review the electronic medical record through the clinic. I was able to discover that in February 2007 I had performed a colonoscopy upon the patient. The patient's colonoscopy at that time was normal endoscopically but random biopsies were obtained throughout the ascending colon, descending colon and rectum. Pathologically, the patient did return revealing evidence for moderate nonspecific chronic colitis in conjunction with mild acute colitis with crypt abscesses and chronic inflammation. I informed the patient that at this time, given her degree of hypoxia and persistent cough as a result of her influenza illness, I would not recommend proceeding with endoscopic evaluation. Her hemoglobin has stabilized and she has not had any further significant rectal bleeding. I would recommend that we continue with ongoing empiric treatment for peptic ulcer disease. The patient was placed on Protonix 40 mg IV daily. Will go ahead and add Carafate to her medical regimen empirically. Would recommend that once she has stabilized on an outpatient basis proceeding with endoscopic evaluation as a result of her history for rectal bleeding. The above plan was discussed the patient. She understood and agreed. DENTON
[2017-06-05] MEDS: SUCRALFATE 1 GM TABLET PO SCH (20:06)
[2017-06-05] MEDS: PRAVASTATIN 20 MG TABLET PO SCH (20:06)
[2017-06-05] MEDS: SENNA + DOCUSATE TABLET PO SCH (20:07)
[2017-06-06] MEDS: METHYLPREDNISOLONE SOD SUCC 125mg/2ml INJECTION IVP SCH ×4 (02:33→20:08)
[2017-06-06] MEDS: SUCRALFATE 1 GM TABLET PO SCH ×4 (05:46→20:08)
[2017-06-06] MEDS: AMLODIPINE 2.5 MG TABLET PO SCH (08:57)
[2017-06-06] MEDS: AMIODARONE 200 MG TABLET PO SCH (08:57)
[2017-06-06] MEDS: POLYETHYL GLYCOL 3350 17gm PACKET PO SCH (08:57)
[2017-06-06] MEDS: SENNA + DOCUSATE TABLET PO SCH ×2 (08:58→20:09)
[2017-06-06] MEDS: PANTOPRAZOLE 40 MG INJECTION IVP SCH (08:58)
[2017-06-06] MEDS: GABAPENTIN 300 MG CAPSULE PO SCH ×2 (08:58→20:08)
[2017-06-06] MEDS: FUROSEMIDE 40 MG/4 ML INJECTION IVP SCH (13:14)
--- NOTE | 2017-06-06 16:16 | Progress Note ---
- Date 06/06/17 Subjective: Terri reports she is breathing more comfortably today and has not had prolonged coughing spells as she did yesterday. She urinated frequently yesterday and had difficulty with bladder control due to all the coughing. She continues to have exertional dyspnea and occasional wheezing. Oxygen had been titrated to 6 L when seen this morning and has been further titrated this afternoon. Patient reports that she took oxygen off briefly to blow her nose and desaturated to 70% . She denied chest pain or palpitations, has had no nausea or vomiting, and had a bowel movement with some rust colored stool mixed with normal appearing stool ; no grossly bloody stools overnight. Her appetite is fair but she describes generalized weakness. Objective Vital signs: Temperature 97.4 F 06/06/17 14:44 Pulse Rate 64 06/06/17 14:44 Respiratory Rate 18 06/06/17 15:18 Blood Pressure 165/71 H 06/06/17 14:44 Pulse Oximetry 98 -3L 06/06/17 15:18 I/O 2367/2900 Weight down 2 kg from yesterday EXAM General-NAD, alert HEENT-conjunctiva clear, conjugate gaze, sclera anicteric, oropharynx clear Lungs-respirations nonlabored, good airflow, breath sounds clear except crackles present at the bases bilaterally; no wheezing noted Cardiac-regular rhythm, S1-S2-not tachycardic Abd-soft, nontender, bowel sounds present Ext-without edema Psych-calm, cooperative - Rhythm: Normal Sinus Rhythm Height/Weight/BMI: Height 1.68 m Weight 80.2 kg Body Mass Index 27.5 Results - Labs CBC & Chem 7: 06/06/17 04:08 06/06/17 04:08 Labs: Repeat hemoglobin at 4 PM today 9.1 Differential-neutrophils 99, bands 1 Microbiology Results: 06/06/17 10:49 Sputum, Induced Gram Stain -epithelial cells present-sample rejected 06/06/17 10:49 Sputum, Induced Sputum Culture - Final - ABG Interpretation ABG results: Assessment and Plan (1) Influenza A Current visit: Yes Status: Acute (2) Anemia Problem details: microcytic Current visit: Yes Status: Acute (3) Acute respiratory failure with hypoxia Current visit: Yes Status: Acute Assessment and Plan: Impression Acute respiratory failure with hypoxemia. Anemia-present on admission, hemoglobin 6.9, s/p PRBC transfusion. Influenza A GI bleed Thrombocytopenia- ? acute on chronic A-fib Hypertension Hyperlipidemia Fibromyalgia Chronic anticoagulation Plan Oxygenation improving with diuresis, supplemental dose Lasix given at noon today. Repeat chest x-ray tomorrow. Echocardiogram done by Dr. Bird within the past couple of months-will not repeat. Continue to monitor hemoglobin-relatively stable since second transfusion 2 days ago. Eliquis remains on hold due to GI blood loss. Due to precarious respiratory status endoscopic studies are on hold. White count modestly elevated due to stress/steroids. Platelet count stable-70K. Blood pressures trending up-amlodipine increased to 5 mg daily. Tamiflu course completed 06/05. DVT Prophylaxis: SCD's GI Prophylaxis: Protonix Resuscitation Status: Full Code - Physician Narrative Narrative: Date: 06/06/17 Time: 1612 Hospital Course Summary Disclaimer: The visit summary below is not to be considered part of the above Progress Note. Hospital Course: 06/03 Admit patient to inpatient status under care of Dr. James for acute respiratory failure with hypoxia and anemia Continue on oxygen to maintain adequate saturations. Will add scheduled DuoNeb breathing treatments 4 times a day. Did add oral Tylenol with codeine, even significant coughing as well as body aches. Will continue on Tamiflu for 3 additional days given Influenza A. End date . She did receive IV Levaquin while in the emergency room. Will not continue since known viral process. Given anemia, we will type and screen and give 1 unit packed red blood cells. Stop Eliquis. Obtain serum iron levels. Monitor PLT count- Chronically low. Followed by Dr Wyatt. ? ITP Monitor on cardiac telemetry SCDs to bilateral lower extremity for DVT prophylaxis. Patient does wish to be a full code and this orders written. CT chest for eval of abn on CXR. At time of discharge medical care is to return to PCP Dr Staples 06/04 Hgb remains low at 7.0- Transfusion on 1 unit of PRBCs today CT of the chest done this morning reveling opacity throughout bilaterally, exact etiology is unclear Continued hypoxia requiring 4 liters with crackles and wheezing. Overall coughing seems to be improved on Tessalon pearls and Tussionex syrup She continues on Tamiflu, course will end tomorrow 06/05. Continued blood in stool. Appreciate Dr. Lopez's consultation. Continue to follow blood counts carefully, continued thrombocytopenia 06/05 Sig. increase in oxygen requirement combined with 5+ kg weight gain --> IVF dc' d and Lasix IV ordered for diuresis. CT scan chest yesterday supports pulmonary edema with groundglass opacities. CXR ordered, personally reviewed -- severe pulm edema. Abdominal distention, GI bleed -- Dr. Lopez has been consulted & recommends bidirectional endoscopy. Start MiraLAX and Senna Plus. Cont PPI. WBC increased to 15 (? stress rxn). Hgb 9.0 s/p transfusion. Plt improved to 72. Anticoagulation contraindicated. Tamiflu course will be completed today. 06/06 Oxygenation improving with diuresis, supplemental dose Lasix given at noon today. Repeat chest x-ray tomorrow. Echocardiogram done by Dr. Bird within the past couple of months-will not repeat. Continue to monitor hemoglobin-relatively stable since second transfusion 2 days ago. Eliquis remains on hold due to GI blood loss. Due to precarious respiratory status endoscopic studies are on hold. White count modestly elevated due to stress/steroids. Blood pressures trending up-amlodipine increased to 5 mg daily.
[2017-06-06] MEDS ORDERED: AMLODIPINE 2.5 MG TABLET PO ONE (16:23)
[2017-06-06] MEDS: PRAVASTATIN 20 MG TABLET PO SCH (20:09)
[2017-06-07] MEDS: METHYLPREDNISOLONE SOD SUCC 125mg/2ml INJECTION IVP SCH ×2 (02:59→08:29)
[2017-06-07] MEDS: SUCRALFATE 1 GM TABLET PO SCH ×4 (06:25→20:42)
[2017-06-07] MEDS: POLYETHYL GLYCOL 3350 17gm PACKET PO SCH (08:21)
[2017-06-07] MEDS: SENNA + DOCUSATE TABLET PO SCH ×2 (08:21→21:00)
--- NOTE | 2017-06-07 08:28 | XRay Report ---
INDICATION: hypoxic resp failure PROCEDURE: CHEST 2-VIEWS UPRIGHT (PA & LAT) Encounter: Initial COMPARISON: June 05, 2017 FINDINGS: Bilateral airspace consolidation has improved with diffuse interstitial prominence remaining and multiple areas of groundglass opacity. No pleural effusion or pneumothorax. Heart size and mediastinal contours are stable. Pulmonary vascularity is indistinct. Impression: Interval improvement in aeration of the lungs with significant amount of airspace disease remaining. .
[2017-06-07] MEDS: PANTOPRAZOLE 40 MG INJECTION IVP SCH (08:29)
[2017-06-07] MEDS: FUROSEMIDE 40 MG/4 ML INJECTION IVP SCH (08:29)
[2017-06-07] MEDS: GABAPENTIN 300 MG CAPSULE PO SCH ×2 (08:30→20:42)
[2017-06-07] MEDS: AMIODARONE 200 MG TABLET PO SCH (08:31)
[2017-06-07] MEDS: AMLODIPINE 5 MG TABLET PO SCH (08:42)
[2017-06-07] MEDS: PredniSONE 20 MG TABLET PO SCH (16:04)
--- NOTE | 2017-06-07 17:40 | Progress Note ---
DATE 06/07/2017 FINDINGS Mrs. Arana states that she is breathing better. She is still coughing although this is significantly improved. She states she still is noticing some bright red blood within her stools. This was confirmed with nursing. EXAM VITAL SIGNS: Afebrile, normotensive. Last recorded vitals include temperature 96.9, pulse 73, respirations 16, blood pressure 160/69. HEENT: Normocephalic. Pupils are equally round and react to light and accommodation. CHEST: Clear to auscultation bilaterally. HEART: Regular rate and rhythm. Normal S1 and S2 without gallops, murmurs or clicks. ABDOMEN: Palpation of the abdomen reveals it to be soft and nontender. I do not appreciate any evidence for hepatosplenomegaly nor abnormal masses. LABORATORY/RADIOGRAPHIC EVALUATION The patient's hemoglobin remains stable at 9.2. White count is improved to 9.7. BMP was obtained and found to have some electrolyte abnormalities with sodium 146, chloride 108. ASSESSMENT 87-year-old female with history for influenza A with associated hypoxemia. Patient improving from a respiratory standpoint. Patient with history for prior colitis in the remote past. Patient with recent onset of rectal bleeding. PLAN Will continue with current medical treatment for her respiratory illness/ hypoxemia per the hospitalist system. If the patient stabilizes over weekend would recommend that we proceed with esophagogastroduodenoscopy and colonoscopy for further evaluation on Saturday. I have spoken of the above plans with Dr. James/hospitalist at this time. Tentative orders have been placed in the computer for bowel prep on Saturday and permit for bidirectional endoscopy on Saturday. Dr. Dominique will be covering for me over the course of the weekend. Will discuss case with him. [place]
--- NOTE | 2017-06-07 17:46 | Progress Note ---
- Date 06/07/17 Subjective: Terri reports that everything has a metallic taste to it and subsequently she's having difficulty maintaining good oral intake. The abnormal taste was present prior to hospitalization. Dyspnea is improving and cough comes and goes but is significantly improved from a couple days ago. She's had a couple of very fleeting episodes of chest pain occurring while resting with a sharp or gnawing sensation in the substernal region without associated symptoms. She has had 4-5 small stools today which were formed and brown but accompanied by a small amount of blood in the water of the toilet but no obvious melena or maroon stool. She continues to feel lightheaded at times. She is voiding well and denies dysuria. She reports being fatigued today indicating that she didn't sleep very well last night. Objective Vital signs: Temperature 96.9 F 06/07/17 07:00 Pulse Rate 73 06/07/17 16:07 Respiratory Rate 16 06/07/17 15:53 Blood Pressure 160/69 H 06/07/17 15:00 Pulse Oximetry 91 -1 L 06/07/17 16:07 I/O 620/3225 NAD, alert, appears fatigued EOMI, conjunctiva clear, sclera anicteric, oral membranes dry with faint white coat on tongue Respirations nonlabored, good airflow, faint crackles at the bases Regular rhythm, S1-S2 Abdomen is soft, nontender, diminished bowel sounds Extremities without edema, chronic scarring at the left ankle MAEW Rhythm: Normal Sinus Rhythm Height/Weight/BMI: Height 1.68 m Weight 80.2 kg Body Mass Index 27.5 Results - Labs CBC & Chem 7: 06/07/17 05:14 06/07/17 05:15 Labs: Phosphorus 3.6, magnesium 2.8 Iron 12, TIBC 288, iron saturation 4% Microbiology Results: Microbiology 06/06/17 10:49 Sputum, Induced Gram Stain - Final 06/06/17 10:49 Sputum, Induced Sputum Culture - Final - Imaging and Cardiology Chest x-ray Status: image reviewed by me (cardiomegaly, fluid in the fissures, decreased infiltrates from prior films) Assessment and Plan (1) Acute respiratory failure with hypoxia Current visit: Yes Status: Acute (2) Influenza A Current visit: Yes Status: Acute (3) Anemia Problem details: microcytic; iron deficient Current visit: Yes Status: Acute Assessment and Plan: Impression Acute respiratory failure with hypoxemia. Anemia-present on admission, hemoglobin 6.9, s/p 2U PRBC transfusion. Influenza A GI bleed Thrombocytopenia- ? acute on chronic A-fib Hypertension Hyperlipidemia Fibromyalgia Chronic anticoagulation Plan Respiratory status continues to stabilize, oxygenation titrated to 1 L but failed attempts to discontinue oxygen with 86% saturation on room air today. IV Lasix discontinued-oral intake poor. Continue to monitor. IV steroids discontinued-prednisone 40 mg daily started and hope to taper quickly. Chest x-ray shows significant improvement following diuresis although residual infiltrates persist-some component of viral pneumonitis and residual fluid. Echocardiogram done by Dr. Bird within the past couple of months-will not repeat. Hemoglobin stable-discussed with Dr. Lopez; can potentially proceed with endoscopic studies Saturday. Nursing describes some dark red blood in stools today. Iron studies back and consistent with marked iron deficiency - patient does not recall being on iron in the past, oral replacement initiated. Eliquis remains on hold due to GI blood loss. Platelet count improving, continue to monitor. Blood pressures remain high, amlodipine increased to 5 mg daily yesterday. Will not adjust further today. Tamiflu course completed 06/05. DVT Prophylaxis: SCD's GI Prophylaxis: Protonix, other (Carafate) Resuscitation Status: Full Code - Physician Narrative Narrative: Date: 06/07/17 Time: 1741 Hospital Course Summary Disclaimer: The visit summary below is not to be considered part of the above Progress Note. Hospital Course: 06/03 Admit patient to inpatient status under care of Dr. James for acute respiratory failure with hypoxia and anemia Continue on oxygen to maintain adequate saturations. Will add scheduled DuoNeb breathing treatments 4 times a day. Did add oral Tylenol with codeine, even significant coughing as well as body aches. Will continue on Tamiflu for 3 additional days given Influenza A. End date . She did receive IV Levaquin while in the emergency room. Will not continue since known viral process. Given anemia, we will type and screen and give 1 unit packed red blood cells. Stop Eliquis. Obtain serum iron levels. Monitor PLT count- Chronically low. Followed by Dr Wyatt. ? ITP Monitor on cardiac telemetry SCDs to bilateral lower extremity for DVT prophylaxis. Patient does wish to be a full code and this orders written. CT chest for eval of abn on CXR. At time of discharge medical care is to return to PCP Dr Staples 06/04 Hgb remains low at 7.0- Transfusion on 1 unit of PRBCs today CT of the chest done this morning reveling opacity throughout bilaterally, exact etiology is unclear Continued hypoxia requiring 4 liters with crackles and wheezing. Overall coughing seems to be improved on Tessalon pearls and Tussionex syrup She continues on Tamiflu, course will end tomorrow 06/05. Continued blood in stool. Appreciate Dr. Lopez's consultation. Continue to follow blood counts carefully, continued thrombocytopenia 06/05 Sig. increase in oxygen requirement combined with 5+ kg weight gain --> IVF dc' d and Lasix IV ordered for diuresis. CT scan chest yesterday supports pulmonary edema with groundglass opacities. CXR ordered, personally reviewed -- severe pulm edema. Abdominal distention, GI bleed -- Dr. Lopez has been consulted & recommends bidirectional endoscopy. Start MiraLAX and Senna Plus. Cont PPI. WBC increased to 15 (? stress rxn). Hgb 9.0 s/p transfusion. Plt improved to 72. Anticoagulation contraindicated. Tamiflu course will be completed today. 06/06 Oxygenation improving with diuresis, supplemental dose Lasix given at noon today. Repeat chest x-ray tomorrow. Echocardiogram done by Dr. Bird within the past couple of months-will not repeat. Continue to monitor hemoglobin-relatively stable since second transfusion 2 days ago. Eliquis remains on hold due to GI blood loss. Due to precarious respiratory status endoscopic studies are on hold. White count modestly elevated due to stress/steroids. Blood pressures trending up-amlodipine increased to 5 mg daily. 06/07 Oxygenation is improved significantly and chest x-ray improved as well. Currently on 1 L oxygen. IV Lasix discontinued due to poor oral intake, steroids converted to oral administration. Hemoglobin stable, discussed with Dr. Lopez-possible endoscopic studies on Saturday. Iron studies back and consistent with marked iron deficiency - patient does not recall being on iron in the past, oral replacement initiated. Platelet count improving.
[2017-06-07] MEDS: PRAVASTATIN 20 MG TABLET PO SCH (20:43)
[2017-06-08] MEDS: SUCRALFATE 1 GM TABLET PO SCH ×4 (06:16→20:32)
[2017-06-08] MEDS: FERROUS SULFATE 324 MG TABLET PO SCH (09:52)
[2017-06-08] MEDS: PredniSONE 20 MG TABLET PO SCH (09:53)
[2017-06-08] MEDS: AMIODARONE 200 MG TABLET PO SCH (09:53)
[2017-06-08] MEDS: AMLODIPINE 5 MG TABLET PO SCH (09:53)
[2017-06-08] MEDS: PANTOPRAZOLE 40 MG INJECTION IVP SCH (09:54)
[2017-06-08] MEDS: GABAPENTIN 300 MG CAPSULE PO SCH ×2 (09:54→20:31)
[2017-06-08] MEDS: SENNA + DOCUSATE TABLET PO SCH ×2 (09:59→20:25)
[2017-06-08] MEDS: POLYETHYL GLYCOL 3350 17gm PACKET PO SCH (09:59)
[2017-06-08] MEDS ORDERED: FUROSEMIDE 20 MG/2 ML INJECTION IVP ONE (14:02)
--- NOTE | 2017-06-08 14:06 | Progress Note ---
- Date 06/08/17 Subjective: The patient was seen this afternoon in her room. She states she feels a little stronger and was able to walk better today. She states her cough is more productive today. Phlegm is clear. She denies any chest pain. She is eating and drinking okay. She denies any abdominal pain. Her aide that took her to the bathroom reported brown stool but the patient thought there was blood in the stool as well. (I did discuss this with the patient's nurse. She did take the patient to the restroom after my visit and the patient had a normal brown colored stool observed by the nurse. The patient thought it was still too "dark ", but the nurse thought it looked normal and not melanotic.) Objective Vital signs: Temperature 97.3 F 06/08/17 07:42 Pulse Rate 62 06/08/17 07:42 Respiratory Rate 16 06/08/17 12:03 Blood Pressure 164/70 H 06/08/17 07:42 Pulse Oximetry 95 06/08/17 12:03 Rhythm: Normal Sinus Rhythm Height/Weight/BMI: Height 1.68 m Weight 77.5 kg Body Mass Index 27.5 Comments: Weight is 77.5 kg down from a high of 82.1 when she had fluid overload. Admission weight was 77.4. GEN-alert, oriented, no acute distress HEENT-sclera anicteric, oropharynx is moist NECK-positive JVD CV-regular rate and rhythm CHEST-clear to auscultation bilaterally other than some mild crackles in the bases ABD-soft, nontender with positive bowel sounds -no Moore EXT-no edema NEURO-no focal deficits SKIN-warm and dry Results - Labs CBC & Chem 7: 06/08/17 04:17 06/08/17 04:17 Microbiology Results: Microbiology 06/06/17 10:49 Sputum, Induced Gram Stain - Final 06/06/17 10:49 Sputum, Induced Sputum Culture - Final - Impressions Chest x-ray COMPARISON: June 05, 2017 FINDINGS: Bilateral airspace consolidation has improved with diffuse interstitial prominence remaining and multiple areas of groundglass opacity. No pleural effusion or pneumothorax. Heart size and mediastinal contours are stable. Pulmonary vascularity is indistinct. Impression: Interval improvement in aeration of the lungs with significant amount of airspace disease remaining. . Assessment and Plan (1) Influenza A Current visit: Yes Status: Acute (2) Anemia Problem details: microcytic; iron deficient Current visit: Yes Status: Acute (3) Acute respiratory failure with hypoxia Current visit: Yes Status: Acute Assessment and Plan: Impression Acute respiratory failure with hypoxemia. Anemia-present on admission, hemoglobin 6.9, s/p 2U PRBC transfusion. Influenza A GI bleed Fluid overload -improved, still with JVD today. Weight is stable Thrombocytopenia- ? acute on chronic A-fib Hypertension Hyperlipidemia Fibromyalgia Chronic anticoagulation Plan Patient is still requiring 1 L of fluid. She was receiving IV Lasix until today. She has not received any Lasix today yet. Will give 1 dose of Lasix 40 mg IV now and then start her usual 80 mg of Lasix by mouth daily starting tomorrow. We'll decrease prednisone to 20 mg daily starting tomorrow. Repeat CBC and basic metabolic profile tomorrow. We'll check a PA and lateral chest x-ray tomorrow. Likely undergo EGD and colonoscopy on Saturday. She will start clear liquids with lung tomorrow. We'll give an additional dose of potassium for hypokalemia. Blood pressure this morning was 164/70. We'll continue to monitor. Norvasc started 5 mg 06/07/2017 Continue oral iron for iron deficiency. - Physician Narrative Narrative: Date: 06/08/17 Time: 1403 Hospital Course Summary Disclaimer: The visit summary below is not to be considered part of the above Progress Note. Hospital Course: 06/03 Admit patient to inpatient status under care of Dr. James for acute respiratory failure with hypoxia and anemia Continue on oxygen to maintain adequate saturations. Will add scheduled DuoNeb breathing treatments 4 times a day. Did add oral Tylenol with codeine, even significant coughing as well as body aches. Will continue on Tamiflu for 3 additional days given Influenza A. End date . She did receive IV Levaquin while in the emergency room. Will not continue since known viral process. Given anemia, we will type and screen and give 1 unit packed red blood cells. Stop Eliquis. Obtain serum iron levels. Monitor PLT count- Chronically low. Followed by Dr Wyatt. ? ITP Monitor on cardiac telemetry SCDs to bilateral lower extremity for DVT prophylaxis. Patient does wish to be a full code and this orders written. CT chest for eval of abn on CXR. At time of discharge medical care is to return to PCP Dr Staples 06/04 Hgb remains low at 7.0- Transfusion on 1 unit of PRBCs today CT of the chest done this morning reveling opacity throughout bilaterally, exact etiology is unclear Continued hypoxia requiring 4 liters with crackles and wheezing. Overall coughing seems to be improved on Tessalon pearls and Tussionex syrup She continues on Tamiflu, course will end tomorrow 06/05. Continued blood in stool. Appreciate Dr. Lopez's consultation. Continue to follow blood counts carefully, continued thrombocytopenia 06/05 Sig. increase in oxygen requirement combined with 5+ kg weight gain --> IVF dc' d and Lasix IV ordered for diuresis. CT scan chest yesterday supports pulmonary edema with groundglass opacities. CXR ordered, personally reviewed -- severe pulm edema. Abdominal distention, GI bleed -- Dr. Lopez has been consulted & recommends bidirectional endoscopy. Start MiraLAX and Senna Plus. Cont PPI. WBC increased to 15 (? stress rxn). Hgb 9.0 s/p transfusion. Plt improved to 72. Anticoagulation contraindicated. Tamiflu course will be completed today. 06/06 Oxygenation improving with diuresis, supplemental dose Lasix given at noon today. Repeat chest x-ray tomorrow. Echocardiogram done by Dr. Bird within the past couple of months-will not repeat. Continue to monitor hemoglobin-relatively stable since second transfusion 2 days ago. Eliquis remains on hold due to GI blood loss. Due to precarious respiratory status endoscopic studies are on hold. White count modestly elevated due to stress/steroids. Blood pressures trending up-amlodipine increased to 5 mg daily. 06/07 Oxygenation is improved significantly and chest x-ray improved as well. Currently on 1 L oxygen. IV Lasix discontinued due to poor oral intake, steroids converted to oral administration. Hemoglobin stable, discussed with Dr. Lopez-possible endoscopic studies on Saturday. Iron studies back and consistent with marked iron deficiency - patient does not recall being on iron in the past, oral replacement initiated. Platelet count improving. 06/08/2017 Patient is still requiring 1 L of fluid. She was receiving IV Lasix until today. She has not received any Lasix today yet. Will give 1 dose of Lasix 40 mg IV now and then start her usual 80 mg of Lasix by mouth daily starting tomorrow. We'll decrease prednisone to 20 mg daily starting tomorrow. Repeat CBC and basic metabolic profile tomorrow. We'll check a PA and lateral chest x-ray tomorrow. Likely undergo EGD and colonoscopy on Saturday. She will start clear liquids with lung tomorrow. We'll give an additional dose of potassium for hypokalemia. Blood pressure this morning was 164/70. We'll continue to monitor. [facility] started 5 mg 06/07/2017 Continue oral iron for iron deficiency.
[2017-06-08] MEDS: PRAVASTATIN 20 MG TABLET PO SCH (20:32)
[2017-06-08] MEDS: BENZONATATE 200 MG CAPSULE PO PRN (22:42)
[2017-06-09] MEDS: SUCRALFATE 1 GM TABLET PO SCH ×4 (06:29→21:42)
[2017-06-09] MEDS: AMLODIPINE 5 MG TABLET PO SCH (09:00)
[2017-06-09] MEDS: GABAPENTIN 300 MG CAPSULE PO SCH ×2 (09:00→21:41)
[2017-06-09] MEDS: FUROSEMIDE 80 MG TABLET PO SCH (09:00)
[2017-06-09] MEDS: SENNA + DOCUSATE TABLET PO SCH ×2 (09:00→21:42)
[2017-06-09] MEDS: PredniSONE 20 MG TABLET PO SCH (09:01)
[2017-06-09] MEDS: AMIODARONE 200 MG TABLET PO SCH (09:01)
[2017-06-09] MEDS: FERROUS SULFATE 324 MG TABLET PO SCH (09:01)
[2017-06-09] MEDS: PANTOPRAZOLE 40 MG INJECTION IVP SCH (09:01)
[2017-06-09] MEDS: POLYETHYL GLYCOL 3350 17gm PACKET PO SCH (09:02)
[2017-06-09] MEDS ORDERED: Bisacodyl EC TAB 5 MG TABLET PO ONE (10:00)
--- NOTE | 2017-06-09 10:01 | XRay Report ---
INDICATION: hypoxia, fluid overload, rule out pneumonia PROCEDURE: CHEST 2-VIEWS UPRIGHT (PA & LAT) Encounter: Initial COMPARISON: June 07, 2017 FINDINGS: Bilateral airspace disease is not significantly changed. Interstitial prominence and some Loni B lines are noted in the periphery of the lungs. Trace left effusion. No pneumothorax. No new or worsening airspace disease. Heart size and mediastinal contours are stable. Impression: Stable appearance of the chest with mild to moderate pulmonary edema. No focal pneumonia seen. .
[2017-06-09] MEDS ORDERED: POLYETHYL. GLYCOL 3350 BOTTLE 238 GM PO ONE (13:00)
--- NOTE | 2017-06-09 18:48 | Progress Note ---
- Date 06/09/17 Subjective: The patient was seen this evening in her room. She did start her bowel prep and states she's having frequent diarrhea. She has some mild abdominal cramping, but not severe. She is coughing up clear phlegm. She has some shortness of breath at times. She is on 1 L of oxygen. She denies any pain. She is urinating well. Objective Vital signs: Temperature 97.6 F 06/09/17 15:11 Pulse Rate 67 06/09/17 15:11 Respiratory Rate 16 06/09/17 15:11 Blood Pressure 172/74 H 06/09/17 15:11 Pulse Oximetry 98 06/09/17 15:11 Rhythm: Normal Sinus Rhythm Height/Weight/BMI: Height 1.68 m Weight 77.1 kg Body Mass Index 27.5 Comments: Weight is 77.1 kg. Admit weight was 78.4 kg. O2 sat is 98% on 1 L, blood pressure 172/74, she is afebrile GEN-alert, oriented, no acute distress HEENT-anicteric, oropharynx is moist NECK-supple, no JVD CV-regular rate and rhythm CHEST-minimal crackles in the bases ABD-soft, nontender with positive bowel sounds -no Moore EXT-no edema NEURO-no focal deficits SKIN-warm and dry, scattered bruises Results - Labs CBC & Chem 7: 06/09/17 04:21 06/09/17 04:21 Labs: Magnesium and phosphorus are normal Microbiology Results: Microbiology 06/06/17 10:49 Sputum, Induced Gram Stain - Final 06/06/17 10:49 Sputum, Induced Sputum Culture - Final - Impressions Chest x-ray today reveals mild to moderate pulmonary edema, I have viewed the films myself and agree Assessment and Plan (1) Influenza A Current visit: Yes Status: Acute (2) Anemia Problem details: microcytic; iron deficient Current visit: Yes Status: Acute (3) Acute respiratory failure with hypoxia Current visit: Yes Status: Acute Assessment and Plan: Impression Acute respiratory failure with hypoxemia. Anemia-present on admission, hemoglobin 6.9, s/p 2U PRBC transfusion. Influenza A GI bleed Fluid overload -improved. Still some pulmonary edema on chest x-ray today, but no JVD today. Weight today is below her admission weight Thrombocytopenia- ? acute on chronic A-fib Hypertension Hyperlipidemia Fibromyalgia Chronic anticoagulation-on hold Plan The patient still had some pulmonary edema on chest x-ray today, but no JVD and weight is below her admission weight. Her usual 80 mg of Lasix orally was started this morning. She did have hypokalemia and she was given oral potassium this morning. Magnesium and phosphorus are normal. Hemoglobin is stable. She has started her prep for colonoscopy tomorrow. She will also receive EGD. Will repeat chest x-ray tomorrow. Repeat CBC and basic metabolic profile tomorrow. Continue off of anticoagulation. Blood pressure is still borderline high, Norvasc 5 mg started recently. We'll continue to monitor. - Physician Narrative Narrative: Date: 06/09/17 Time: 1842 Hospital Course Summary Disclaimer: The visit summary below is not to be considered part of the above Progress Note. Hospital Course: 06/03 Admit patient to inpatient status under care of Dr. James for acute respiratory failure with hypoxia and anemia Continue on oxygen to maintain adequate saturations. Will add scheduled DuoNeb breathing treatments 4 times a day. Did add oral Tylenol with codeine, even significant coughing as well as body aches. Will continue on Tamiflu for 3 additional days given Influenza A. End date . She did receive IV Levaquin while in the emergency room. Will not continue since known viral process. Given anemia, we will type and screen and give 1 unit packed red blood cells. Stop Eliquis. Obtain serum iron levels. Monitor PLT count- Chronically low. Followed by Dr Wyatt. ? ITP Monitor on cardiac telemetry SCDs to bilateral lower extremity for DVT prophylaxis. Patient does wish to be a full code and this orders written. CT chest for eval of abn on CXR. At time of discharge medical care is to return to PCP Dr Staples 06/04 Hgb remains low at 7.0- Transfusion on 1 unit of PRBCs today CT of the chest done this morning reveling opacity throughout bilaterally, exact etiology is unclear Continued hypoxia requiring 4 liters with crackles and wheezing. Overall coughing seems to be improved on Tessalon pearls and Tussionex syrup She continues on Tamiflu, course will end tomorrow 06/05. Continued blood in stool. Appreciate Dr. Lopez's consultation. Continue to follow blood counts carefully, continued thrombocytopenia 06/05 Sig. increase in oxygen requirement combined with 5+ kg weight gain --> IVF dc' d and Lasix IV ordered for diuresis. CT scan chest yesterday supports pulmonary edema with groundglass opacities. CXR ordered, personally reviewed -- severe pulm edema. Abdominal distention, GI bleed -- Dr. Lopez has been consulted & recommends bidirectional endoscopy. Start MiraLAX and Senna Plus. Cont PPI. WBC increased to 15 (? stress rxn). Hgb 9.0 s/p transfusion. Plt improved to 72. Anticoagulation contraindicated. Tamiflu course will be completed today. 06/06 Oxygenation improving with diuresis, supplemental dose Lasix given at noon today. Repeat chest x-ray tomorrow. Echocardiogram done by Dr. Bird within the past couple of months-will not repeat. Continue to monitor hemoglobin-relatively stable since second transfusion 2 days ago. Eliquis remains on hold due to GI blood loss. Due to precarious respiratory status endoscopic studies are on hold. White count modestly elevated due to stress/steroids. Blood pressures trending up-amlodipine increased to 5 mg daily. 06/07 Oxygenation is improved significantly and chest x-ray improved as well. Currently on 1 L oxygen. IV Lasix discontinued due to poor oral intake, steroids converted to oral administration. Hemoglobin stable, discussed with Dr. Lpoez-possible endoscopic studies on Saturday. Iron studies back and consistent with marked iron deficiency - patient does not recall being on iron in the past, oral replacement initiated. Platelet count improving. 06/08/2017 Patient is still requiring 1 L of fluid. She was receiving IV Lasix until today. She has not received any Lasix today yet. Will give 1 dose of Lasix 40 mg IV now and then start her usual 80 mg of Lasix by mouth daily starting tomorrow. We'll decrease prednisone to 20 mg daily starting tomorrow. Repeat CBC and basic metabolic profile tomorrow. We'll check a PA and lateral chest x-ray tomorrow. Likely undergo EGD and colonoscopy on Saturday. She will start clear liquids with lung tomorrow. We'll give an additional dose of potassium for hypokalemia. Blood pressure this morning was 164/70. We'll continue to monitor. Norvasc started 5 mg 06/07/2017 Continue oral iron for iron deficiency. 06/09/2017 The patient still had some pulmonary edema on chest x-ray today, but no JVD and weight is below her admission weight. Her usual 80 mg of Lasix orally was started this morning. She did have hypokalemia and she was given oral potassium this morning. Magnesium and phosphorus are normal. Hemoglobin is stable. She has started her prep for colonoscopy tomorrow. She will also receive EGD. Will repeat chest x-ray tomorrow. Repeat CBC and basic metabolic profile tomorrow. Continue off of anticoagulation. Blood pressure is still borderline high, Norvasc 5 mg started recently. We'll continue to monitor.
[2017-06-09] MEDS: SALINE FLUSH 10ml SYRINGE IVF PRN (21:42)
[2017-06-09] MEDS: PRAVASTATIN 20 MG TABLET PO SCH (21:42)
[2017-06-09] MEDS: HYDROCODONE/CHLORPHENIRAMINE ER ORAL LIQ 5ml PO PRN (21:42)
[2017-06-10] MEDS: BENZONATATE 200 MG CAPSULE PO PRN ×2 (00:31→21:40)
[2017-06-10] MEDS: NS with KCL 20 mEq 1,000 ML IV SCH ×2 (05:55→18:14)
[2017-06-10] MEDS ORDERED: FLEET PHOSPHO - SODA ENEMA 133ml PR PRN (06:21)
[2017-06-10] MEDS: SUCRALFATE 1 GM TABLET PO SCH ×4 (07:35→21:40)
[2017-06-10] MEDS ORDERED: POTASSIUM CHLORIDE IV SCH (07:45)
[2017-06-10] MEDS ORDERED: NS IV SCH (07:45)
[2017-06-10] MEDS ORDERED: LIDOCAINE IV SCH (07:45)
--- NOTE | 2017-06-10 08:16 | Progress Note ---
DATE OF VISIT 06/09/2017 REASON FOR VISIT Covering surgical care for Dr. Lopez. GEOFFREY Murray is doing well though she does complain of some distention with the start of her bowel prep today. Clinically she has been improving lately and it was felt she would be ready for upper and lower endoscopy tomorrow. OBJECTIVE VITALS: Temperature 97.6, pulse 67, blood pressure 172/74, respiratory rate 16 , oxygen saturation 98% on 1 liter nasal cannula. GENERAL: The patient is awake, alert, in no acute distress. ABDOMEN: Soft, nontender, nondistended. LABORATORY DATA Hemoglobin today was relatively stable at 8.5 from 8.6 yesterday. ASSESSMENT 1. Influenza A with hypoxia - stable. 2. Melena and hematochezia requiring blood transfusions - hemoglobin stable. PLAN 1. Complete bowel prep today. 2. Upper and lower endoscopy tomorrow. D[place]ON
[2017-06-10] MEDS: FERROUS SULFATE 324 MG TABLET PO SCH (08:46)
[2017-06-10] MEDS: AMIODARONE 200 MG TABLET PO SCH (08:46)
[2017-06-10] MEDS: SENNA + DOCUSATE TABLET PO SCH (08:47)
[2017-06-10] MEDS: PredniSONE 20 MG TABLET PO SCH (08:48)
[2017-06-10] MEDS: GABAPENTIN 300 MG CAPSULE PO SCH ×2 (08:48→21:40)
[2017-06-10] MEDS: AMLODIPINE 5 MG TABLET PO SCH (08:49)
[2017-06-10] MEDS: PANTOPRAZOLE 40 MG INJECTION IVP SCH (08:55)
[2017-06-10] MEDS: POLYETHYL GLYCOL 3350 17gm PACKET PO SCH (08:56)
[2017-06-10] MEDS: FUROSEMIDE 80 MG TABLET PO SCH (09:27)
--- NOTE | 2017-06-10 09:36 | XRay Report ---
EXAM: XR chest 1V 0556 hours COMPARISON: 06/09/2017. 06/07/2017. 10/16/2009. HISTORY: pulm edema, hypoxia . FINDINGS:EKG leads and wires project over the chest. The heart is enlarged. Telemetry device is seen projecting over the mid heart. The pulmonary vascularity is indistinct. Increased interstitial markings are seen throughout the lungs. There may be some coalescent opacity at the right upper lung and left lung base. There is mild blunting of the left costophrenic angle. There is no evidence for a pneumothorax. No osseous abnormalities are identified. IMPRESSION: 1. Cardiomegaly. 2. Increased interstitial markings with coalescent opacity at the right upper lung and left lung base which may represent mild congestion and coalescent infiltrates. This appears worse compared to the prior exam. LOCATION OF DICTATION: [facility] [place] .
[2017-06-10] MEDS ORDERED: FUROSEMIDE 20 MG/2 ML INJECTION IVP ONE (11:06)
--- NOTE | 2017-06-10 11:27 | Progress Note ---
- Date 06/10/17 Subjective: The patient was seen this morning in her room. She states she continues to have intermittent cough with yellowish clear phlegm. She is short of breath only when she is coughing. Her stomach is mildly upset after undergoing prep for colonoscopy yesterday. She is nothing by mouth today. She denies any pain anywhere. Her potassium was low this morning and she is being given both IV and oral potassium. Plan is for EGD and colonoscopy later today. Objective Vital signs: Temperature 99.0 F 06/10/17 07:30 Pulse Rate 69 06/10/17 08:00 Respiratory Rate 24 06/10/17 10:35 Blood Pressure 175/73 H 06/10/17 07:30 Pulse Oximetry 97 06/10/17 10:35 Rhythm: Normal Sinus Rhythm Height/Weight/BMI: Height 1.68 m Weight 77.5 kg Body Mass Index 27.5 Comments: Weight is 77.5 kg which is close to her admission weight of 77.4 kg. Currently she is on 1 L of oxygen with O2 sat of 93%. She is afebrile. Heart rate is 69. Blood pressure prior to antihypertensives this morning was 175/73. GEN-alert, oriented, no acute distress HEENT-sclera anicteric, oropharynx is moist NECK-supple, positive JVD CV-regular rate and rhythm, 2/6 systolic murmur CHEST-mild crackles in the bases, no wheezing or rhonchi ABD-soft, nontender with positive bowel sounds -no Moore EXT-no edema NEURO-no focal deficits SKIN-warm and dry and without rashes Results - Labs CBC & Chem 7: 06/10/17 03:59 06/10/17 03:59 Labs: Potassium and phosphorus were normal yesterday. Microbiology Results: Microbiology 06/06/17 10:49 Sputum, Induced Gram Stain - Final 06/06/17 10:49 Sputum, Induced Sputum Culture - Final - Impressions Chest x-ray today shows cardiomegaly and increased interstitial markings with coalescent opacity at the right upper lung and left base which may represent mild congestion and coalescent infiltrates. This appears worse compared to the prior exam. On review of old x-rays, the patient did have interval increase in interstitial prominence which could be mild pulmonary edema or atypical/viral pneumonia back in February 2017. CT chest 06/03/2017 Impression: 1. Bilateral groundglass opacities most likely representing pulmonary edema given the small effusions. Less likely etiologies include hypersensitivity pneumonitis/drug reaction and pulmonary alveolar proteinosis. 2. 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 (Per notes from Dr. James, opacity has been present since 2010) Assessment and Plan (1) Influenza A Current visit: Yes Status: Acute (2) Anemia Problem details: microcytic; iron deficient Current visit: Yes Status: Acute (3) Acute respiratory failure with hypoxia Current visit: Yes Status: Acute Assessment and Plan: Impression Acute respiratory failure with hypoxemia-continued pulmonary edema versus hypersensitivity pneumonitis versus drug reaction versus pulmonary Alveolar proteinosis versus other Anemia-present on admission, hemoglobin 6.9, s/p 2U PRBC transfusion. Influenza A GI bleed Fluid overload -improved. Still some pulmonary edema on chest x-ray today, but no JVD today. Weight today is below her admission weight Thrombocytopenia- ? acute on chronic A-fib Hypertension Hyperlipidemia Fibromyalgia Chronic anticoagulation-on hold Hypokalemia Plan EGD and colonoscopy later today Replace potassium orally and IV. Recheck potassium after IV replacement She does have JVD today, so we'll give her Lasix now with an extra potassium. Chest x-ray shows worsening today, question whether this is edema versus other cause. With her prolonged abnormalities on chest x-ray, will consult Dr. Cheney for further evaluation. Discussed with JEREMY Cárdenas for Dr. Cheney. She did discuss this with Dr. Cheney and he reviewed the films, he recommends discontinuation of amiodarone and thinks this is less likely to be pulmonary edema. Continue prednisone for now. Repeat CBC and basic metabolic profile tomorrow. Add DuoNeb breathing treatments. May need additional antihypertensives if blood pressure is not improving. Discussed with Dr. Lopez DVT Prophylaxis: SCD's GI Prophylaxis: Protonix Resuscitation Status: Full Code - Time spent with patient Time with patient PN: 35 minutes - Physician Narrative Narrative: Date: 06/10/17 Time: 1124 Hospital Course Summary Disclaimer: The visit summary below is not to be considered part of the above Progress Note. Hospital Course: 06/03 Admit patient to inpatient status under care of Dr. James for acute respiratory failure with hypoxia and anemia Continue on oxygen to maintain adequate saturations. Will add scheduled DuoNeb breathing treatments 4 times a day. Did add oral Tylenol with codeine, even significant coughing as well as body aches. Will continue on Tamiflu for 3 additional days given Influenza A. End date . She did receive IV Levaquin while in the emergency room. Will not continue since known viral process. Given anemia, we will type and screen and give 1 unit packed red blood cells. Stop Eliquis. Obtain serum iron levels. Monitor PLT count- Chronically low. Followed by Dr Wyatt. ? ITP Monitor on cardiac telemetry SCDs to bilateral lower extremity for DVT prophylaxis. Patient does wish to be a full code and this orders written. CT chest for eval of abn on CXR. At time of discharge medical care is to return to PCP Dr Staples 06/04 Hgb remains low at 7.0- Transfusion on 1 unit of PRBCs today CT of the chest done this morning reveling opacity throughout bilaterally, exact etiology is unclear Continued hypoxia requiring 4 liters with crackles and wheezing. Overall coughing seems to be improved on Tessalon pearls and Tussionex syrup She continues on Tamiflu, course will end tomorrow 06/05. Continued blood in stool. Appreciate Dr. Lopez's consultation. Continue to follow blood counts carefully, continued thrombocytopenia 06/05 Sig. increase in oxygen requirement combined with 5+ kg weight gain --> IVF dc' d and Lasix IV ordered for diuresis. CT scan chest yesterday supports pulmonary edema with groundglass opacities. CXR ordered, personally reviewed -- severe pulm edema. Abdominal distention, GI bleed -- Dr. Lopez has been consulted & recommends bidirectional endoscopy. Start MiraLAX and Senna Plus. Cont PPI. WBC increased to 15 (? stress rxn). Hgb 9.0 s/p transfusion. Plt improved to 72. Anticoagulation contraindicated. Tamiflu course will be completed today. 06/06 Oxygenation improving with diuresis, supplemental dose Lasix given at noon today. Repeat chest x-ray tomorrow. Echocardiogram done by Dr. Bird within the past couple of months-will not repeat. Continue to monitor hemoglobin-relatively stable since second transfusion 2 days ago. Eliquis remains on hold due to GI blood loss. Due to precarious respiratory status endoscopic studies are on hold. White count modestly elevated due to stress/steroids. Blood pressures trending up-amlodipine increased to 5 mg daily. 06/07 Oxygenation is improved significantly and chest x-ray improved as well. Currently on 1 L oxygen. IV Lasix discontinued due to poor oral intake, steroids converted to oral administration. Hemoglobin stable, discussed with Dr. Lopez-possible endoscopic studies on Saturday. Iron studies back and consistent with marked iron deficiency - patient does not recall being on iron in the past, oral replacement initiated. Platelet count improving. 06/08/2017 Patient is still requiring 1 L of fluid. She was receiving IV Lasix until today. She has not received any Lasix today yet. Will give 1 dose of Lasix 40 mg IV now and then start her usual 80 mg of Lasix by mouth daily starting tomorrow. We'll decrease prednisone to 20 mg daily starting tomorrow. Repeat CBC and basic metabolic profile tomorrow. We'll check a PA and lateral chest x-ray tomorrow. Likely undergo EGD and colonoscopy on Saturday. She will start clear liquids with lung tomorrow. We'll give an additional dose of potassium for hypokalemia. Blood pressure this morning was 164/70. We'll continue to monitor. Norvasc started 5 mg 06/07/2017 Continue oral iron for iron deficiency. 06/09/2017 The patient still had some pulmonary edema on chest x-ray today, but no JVD and weight is below her admission weight. Her usual 80 mg of Lasix orally was started this morning. She did have hypokalemia and she was given oral potassium this morning. Magnesium and phosphorus are normal. Hemoglobin is stable. She has started her prep for colonoscopy tomorrow. She will also receive EGD. Will repeat chest x-ray tomorrow. Repeat CBC and basic metabolic profile tomorrow. Continue off of anticoagulation. Blood pressure is still borderline high, Norvasc 5 mg started recently. We'll continue to monitor. 06/10/2017 Plan EGD and colonoscopy later today Replace potassium orally and IV. Recheck potassium after IV replacement She does have JVD today, so we'll give her Lasix now with an extra potassium. Chest x-ray shows worsening today, question whether this is edema versus other cause. With her prolonged abnormalities on chest x-ray, will consult Dr. Cheney for further evaluation. Discussed with JEREMY Cárdenas for Dr. Cheney. Repeat CBC and basic metabolic profile tomorrow. Add DuoNeb breathing treatments. May need additional antihypertensives if blood pressure is not improving. Discussed with Dr. Lopez
[2017-06-10] MEDS ORDERED: ALBUTEROL/IPRATROPIUM 2.5mg-0.5mg/3ml NEB AEROSOL SCH (15:00)
[2017-06-10] MEDS ORDERED: NS 1,000 ML IV SCH (16:00)
--- NOTE | 2017-06-10 16:09 | Pulmonology Consult Note ---
History of Present Illness Consult date: 06/10/17 Requesting physician: Alka James Reason for consult: dyspnea Chief complaint: shortness of breath History of present illness: HPI: Terri is a pleasant 87 yr old female who has had upper respiratory infection with persistent cough for 5 days. She was seen in the emergency room on 05/31/17 for evaluation of coughing. At that time she was found to have influenza A, and was started on Tamiflu. Over the past 2 days her symptoms have gotten progressively worse and she began feeling more short of breath. This morning she activated EMS, she was found to be significantly hypoxic at 79% on room air. Acute evaluation was performed in the emergency room. White count was found to be normal at 5.9, hemoglobin found to be significantly low at 6.9, hematocrit 23.7, platelet count 81 with 73% neutrophils. Chemistry panel unremarkable. Chest x-ray did reveal a interstitial opacity of unknown cause. She continued to require oxygen 2-3 liters to maintain adequate saturations. She denies having any chest pain. She does complain of midthoracic back pain with intermittent generalized body aches. He also reports having black tarry stool for approximately 1-2 months. She did note recently there is blood present in the stool. She chronically does take Eliquis for anticoagulation given atrial fibrillation and history of CVA. Patient does report having anemia in the past following back surgery, she did require blood transfusion at that time. She reports that she was evaluated by a "blood doctor" years ago however he dismissed her. Did discuss advanced directives she does wish to be a full code. She states she has been on amiodarone for the past 2 years. She has had concerns about the drug since the last few weeks she has a severe metallic taste in her mouth. She is a patient of Dr Bird. 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 skin cancer removal from ankle with skin grafting. partial left mastectomy due to benign lump. hysterectomy. Left Hip surgery- 03/2017. Lumbar back surgery- 1999 Family History Updates: Father-chronic kidney disease, CVA. Mother- of old age - Social History Smoking status: Former smoker Substance use type: does not use Alcohol intake frequency: does not drink Housing: house Household members: family Social history: Primary care provider, Dr. Staples Raisin Washer, Dr. Bird Ordinary Seaman, Dr. Wyatt Medications Review of Systems All systems: reviewed and no additional remarkable complaints except as stated ( what is mentioned in the HPI) [facility] Patient Stated Medical History Cerebrovascular Accident Yes: 2014-affected her balance Dental Problems Yes: dentures/partial Coronary Artery Disease Yes Hypertension Yes Myocardial Infarction Yes: 2014 Pneumonia Yes: 2014 Hx Urinary Tract Infection Yes Clotting Problems Yes: TAKES ELIQUIS Other Musculoskeletal Yes: ARTHRITIS BILAT KNEES Blood Transfusions Yes: no known reaction Clinic Medical History (Last Reviewed 02/06/17 @ 20:23 by Serg Wiggins MD) Fibromyalgia (Chronic Medical) HTN (hypertension) (Chronic Medical) High cholesterol (Chronic Medical) Osteoarthritis (Chronic Medical) Myocardial infarct (Resolved Medical) Skin cancer (Resolved Medical) Surgical History: Implantable loop recorder. skin cancer removal from ankle with skin grafting. partial left mastectomy due to benign lump. hysterectomy. Left Hip surgery- 03/2017. Lumbar back surgery- 1999 - Social History Smoking status: Former smoker Medications Home Medications Medication Instructions Recorded Confirmed Type Apixaban [Eliquis] 5 mg PO BID #0 04/13/16 06/03/17 History Cholecalciferol [Vit. D-3] 1,000 unit PO DAILY #0 04/13/16 06/03/17 History Gabapentin 300 mg PO QAM #0 04/13/16 06/03/17 History Gabapentin 600 mg PO HS #0 04/13/16 06/03/17 History Lutein/Zeaxanthin 1 cap PO DAILY 09/28/16 06/03/17 History [Lutein-Zeaxanthin 25-5 mg Sfgl] Amiodarone HCl [Pacerone] 100 mg PO DAILY 05/31/17 06/03/17 History Amlodipine [Norvasc] 2.5 mg PO DAILY 05/31/17 06/03/17 History Furosemide [Lasix] 80 mg PO DAILY 05/31/17 06/03/17 History Hydrocodone/APAP 7.5/325 [Plush 1 tab PO BID PRN 05/31/17 06/03/17 History 7.5/325] Metoprolol Tartrate [Lopressor] 25 mg PO HS 05/31/17 06/03/17 History Potassium Chloride [Klor-Con M20] 20 meq PO DAILY 05/31/17 06/03/17 History Pravastatin [Pravachol] 20 mg PO HS 05/31/17 06/03/17 History Allergies Allergy/AdvReac Type Severity Reaction Status Date / Time amoxicillin Allergy Unknown Verified 06/03/17 05:36 cephalexin Allergy Unknown Swelling Verified 06/03/17 05:36 of Lip/Tongue/Throat clavulanic acid Allergy Unknown Verified 06/03/17 05:36 [From Augmentin] erythromycin base Allergy Unknown HIVES Verified 06/03/17 05:36 etodolac Allergy Unknown Hives Verified 06/03/17 05:36 iodine Allergy Unknown IV AND Verified 06/03/17 05:36 SKIN-HIVES AND ITCHING minocycline Allergy Unknown UPSET Verified 06/03/17 05:36 STOMACH Sulfa (Sulfonamide Allergy Unknown HIVES Verified 06/03/17 05:36 Antibiotics) thyme Allergy Unknown Verified 06/03/17 05:36 Exam Vital signs: Temperature 98.8 F 06/10/17 15:50 Pulse Rate 74 06/10/17 15:50 Respiratory Rate 13 06/10/17 15:50 Blood Pressure 132/63 06/10/17 15:50 Pulse Oximetry 93 06/10/17 15:50 - Constitutional no acute distress Comments: appears ill, coughing. pale. no distress - Routine HEENT Exam Head: Present: normocephalic, atraumatic Eye: Absent: conjunctival icterus - Routine Neck Exam Present: supple - Routine Chest/Breast/Axilla Exam Chest wall: Present: pacemaker - Routine Respiratory Exam Present: decreased breath sounds, rhonchi. Absent: accessory muscle use - Routine Cardiovascular Exam Present: RRR - Routine Abdominal Exam Present: soft. Absent: guarding - Routine Extremities Exam Absent: cyanosis, clubbing, edema - Routine Skin Exam Present: warm. Absent: rash - Routine Neurological Exam Present: alert, oriented X3 - Routine Psychiatric Exam Present: normal affect, normal thought process Results - Laboratory Findings CBC and BMP: 06/10/17 03:59 06/10/17 13:39 ABG ABG pH 7.400 (7.350-7.450) 06/05/17 16:43 ABG pCO2 36 MMHG (34-45) 06/05/17 16:43 ABG pO2 69 MMHG (80-100) L 06/05/17 16:43 ABG O2 Saturation 94.0 % (95.0-98.0) L 06/05/17 16:43 Abnormal lab findings: Abnormal Labs 06/03/17 06/03/17 06/03/17 08:35 09:07 13:16 WBC RBC Hgb 7.8 L D Hct MCV MCH MCHC RDW Std Deviation Plt Count Immature Gran % (Auto) Neut % (Auto) Lymph % (Auto) Harding % (Auto) Lymph # (Auto) Abs Immat Gran (auto) Neutrophils % (Manual) Lymphocytes % (Manual) Metamyelocytes % Myelocytes % Neutrophils # (Manual) Lymphocytes # (Manual) ABG pO2 ABG O2 Saturation ABG Base Excess Sodium Potassium Chloride Carbon Dioxide BUN BUN/Creatinine Ratio Glucose Calculated Osmolality Calcium Urine Protein 1+ A Urine Occult Blood 1+ A Urine Bacteria Trace H Stool Occult Blood Crossmatch ([facility]) See Detail 06/03/17 06/03/17 06/04/17 15:35 20:07 01:11 WBC RBC 3.56 L Hgb 7.9 L 7.4 L Hct 26.6 L D 25.1 L MCV 70.5 L MCH 20.8 L MCHC 29.5 L RDW Std Deviation Plt Count 60 L Immature Gran % (Auto) Neut % (Auto) Lymph % (Auto) Harding % (Auto) Lymph # (Auto) Abs Immat Gran (auto) Neutrophils % (Manual) 93.0 H Lymphocytes % (Manual) 2.0 L Metamyelocytes % 1.0 H Myelocytes % Neutrophils # (Manual) 8.1 H Lymphocytes # (Manual) 0.2 L ABG pO2 ABG O2 Saturation ABG Base Excess Sodium Potassium Chloride Carbon Dioxide BUN BUN/Creatinine Ratio Glucose Calculated Osmolality Calcium Urine Protein Urine Occult Blood Urine Bacteria Stool Occult Blood Positive A Crossmatch ([facility]) 06/04/17 06/04/17 06/04/17 01:11 07:53 15:23 WBC RBC Hgb 7.0 L 8.9 L D Hct 24.0 L MCV MCH MCHC RDW Std Deviation Plt Count Immature Gran % (Auto) Neut % (Auto) Lymph % (Auto) Harding % (Auto) Lymph # (Auto) Abs Immat Gran (auto) Neutrophils % (Manual) Lymphocytes % (Manual) Metamyelocytes % Myelocytes % Neutrophils # (Manual) Lymphocytes # (Manual) ABG pO2 ABG O2 Saturation ABG Base Excess Sodium Potassium Chloride Carbon Dioxide BUN 18.0 H BUN/Creatinine Ratio Glucose 184 H Calculated Osmolality Calcium Urine Protein Urine Occult Blood Urine Bacteria Stool Occult Blood Crossmatch ([facility]) 06/05/17 06/05/17 06/05/17 04:09 04:09 15:40 WBC 15.3 H D RBC Hgb 9.0 L 9.3 L Hct 30.1 L D 31.4 L MCV 74.7 L MCH 22.3 L MCHC 29.9 L RDW Std Deviation 57.1 H Plt Count 72 L Immature Gran % (Auto) Neut % (Auto) Lymph % (Auto) Harding % (Auto) Lymph # (Auto) Abs Immat Gran (auto) Neutrophils % (Manual) 91.0 H Lymphocytes % (Manual) 3.0 L Metamyelocytes % Myelocytes % Neutrophils # (Manual) 13.9 H Lymphocytes # (Manual) 0.5 L ABG pO2 ABG O2 Saturation ABG Base Excess Sodium Potassium Chloride 112 H Carbon Dioxide BUN 20.0 H BUN/Creatinine Ratio Glucose 111 H Calculated Osmolality 281 H Calcium Urine Protein Urine Occult Blood Urine Bacteria Stool Occult Blood Crossmatch ([facility]) 06/05/17 06/06/17 06/06/17 16:43 04:08 04:08 WBC RBC 3.82 L Hgb 8.5 L Hct 28.3 L MCV 74.1 L MCH 22.3 L MCHC 30.0 L RDW Std Deviation 58.8 H Plt Count 70 L Immature Gran % (Auto) Neut % (Auto) Lymph % (Auto) Harding % (Auto) Lymph # (Auto) Abs Immat Gran (auto) Neutrophils % (Manual) 99.0 H Lymphocytes % (Manual) Metamyelocytes % Myelocytes % Neutrophils # (Manual) 9.7 H Lymphocytes # (Manual) ABG pO2 69 L ABG O2 Saturation 94.0 L ABG Base Excess -2.1 L Sodium Potassium Chloride 109 H Carbon Dioxide BUN 19.0 H BUN/Creatinine Ratio Glucose 172 H Calculated Osmolality Calcium Urine Protein Urine Occult Blood Urine Bacteria Stool Occult Blood Crossmatch ([facility]) 06/06/17 06/07/17 06/07/17 16:10 05:14 05:15 WBC RBC Hgb 9.1 L 9.2 L Hct 30.4 L 30.4 L MCV 73.8 L MCH 22.3 L MCHC 30.3 L RDW Std Deviation 60.2 H Plt Count 100 L D Immature Gran % (Auto) Neut % (Auto) Lymph % (Auto) Harding % (Auto) Lymph # (Auto) Abs Immat Gran (auto) Neutrophils % (Manual) 95.0 H Lymphocytes % (Manual) 1.0 L Metamyelocytes % Myelocytes % Neutrophils # (Manual) 9.2 H Lymphocytes # (Manual) 0.1 L ABG pO2 ABG O2 Saturation ABG Base Excess Sodium 146 H Potassium Chloride 108 H Carbon Dioxide BUN 23.0 H BUN/Creatinine Ratio 29 H Glucose 144 H Calculated Osmolality 288 H Calcium Urine Protein Urine Occult Blood Urine Bacteria Stool Occult Blood Crossmatch ([facility]) 06/08/17 06/08/17 06/09/17 04:17 04:17 04:21 WBC RBC 3.87 L 3.83 L Hgb 8.6 L 8.5 L Hct 28.7 L 28.6 L MCV 74.2 L 74.7 L MCH 22.2 L 22.2 L MCHC 30.0 L 29.7 L RDW Std Deviation 60.2 H 61.3 H Plt Count 115 L 118 L Immature Gran % (Auto) Neut % (Auto) Lymph % (Auto) Harding % (Auto) Lymph # (Auto) Abs Immat Gran (auto) Neutrophils % (Manual) 92.0 H 87.0 H Lymphocytes % (Manual) 1.0 L 5.0 L Metamyelocytes % Myelocytes % 1.0 H Neutrophils # (Manual) Lymphocytes # (Manual) 0.1 L 0.4 L ABG pO2 ABG O2 Saturation ABG Base Excess Sodium 145 H Potassium 3.4 L Chloride Carbon Dioxide BUN 24.0 H BUN/Creatinine Ratio 30 H Glucose 172 H Calculated Osmolality 287 H Calcium Urine Protein Urine Occult Blood Urine Bacteria Stool Occult Blood Crossmatch ([facility]) 06/09/17 06/10/17 06/10/17 04:21 03:59 03:59 WBC RBC 3.82 L Hgb 8.4 L Hct 28.6 L MCV 74.9 L MCH 22.0 L MCHC 29.4 L RDW Std Deviation 61.0 H Plt Count 120 L Immature Gran % (Auto) 1.5 H Neut % (Auto) 74.7 H Lymph % (Auto) 10.7 L Harding % (Auto) 12.8 H Lymph # (Auto) 0.7 L Abs Immat Gran (auto) 0.09 H Neutrophils % (Manual) Lymphocytes % (Manual) Metamyelocytes % Myelocytes % Neutrophils # (Manual) Lymphocytes # (Manual) ABG pO2 ABG O2 Saturation ABG Base Excess Sodium 147 H Potassium 3.1 L 2.8 L* Chloride Carbon Dioxide 31 H 31 H BUN 25.0 H BUN/Creatinine Ratio 36 H Glucose 139 H Calculated Osmolality 288 H Calcium 8.2 L Urine Protein Urine Occult Blood Urine Bacteria Stool Occult Blood Crossmatch ([facility]) - Diagnostic Findings CT scan - chest: image reviewed Assessment and Plan (1) Abnormal findings on diagnostic imaging of lung Status: Acute Assessment and plan: CT reviewed. Patchy ground glass opacities with interstitial, intralobular septal thickening. Disease is patchy and asymmetric. I doubt this represents pulmonary edema. Acute infectious disease (IE Influenza) could have this appearance, however alternatively Amiodarone pulmonary toxicity is a more worrisome possibility. I would recommend stopping amiodarone while we sort it out. If findings and clinical picture do not improve, she may need a more invasive workup. Current Visit: Yes (2) Influenza A Status: Acute Current Visit: Yes (3) Acute respiratory failure with hypoxia Status: Acute Current Visit: Yes - Time Spent With Patient Total time spent is greater than 50% in coordination of care (as documented) at patient's floor/unit and/or counseling patient: 25 - 35 minutes
--- NOTE | 2017-06-10 16:33 | Anesthesia Preoperative Report ---
Anesthesia Preoperative Record - Date and Time Date: 06/10/17 Preoperative Diagnosis: anemia,hypoxia requiring oxygen,influenza Proposed Procedure: EGD/Colonoscopy NPO Since Date: 06/10/17 NPO Since Time: 00:00 Allergies/Adverse Reactions: Allergies Allergy/AdvReac Type Severity Reaction Status Date / Time amoxicillin Allergy Unknown Verified 06/03/17 05:36 cephalexin Allergy Unknown Swelling Verified 06/03/17 05:36 of Lip/Tongue/Throat clavulanic acid Allergy Unknown Verified 06/03/17 05:36 [From Augmentin] erythromycin base Allergy Unknown HIVES Verified 06/03/17 05:36 etodolac Allergy Unknown Hives Verified 06/03/17 05:36 iodine Allergy Unknown IV AND Verified 06/03/17 05:36 SKIN-HIVES AND ITCHING minocycline Allergy Unknown UPSET Verified 06/03/17 05:36 STOMACH Sulfa (Sulfonamide Allergy Unknown HIVES Verified 06/03/17 05:36 Antibiotics) thyme Allergy Unknown Verified 06/03/17 05:36 - Vital Signs Vital Signs: Temperature 98.8 F 06/10/17 15:50 Pulse Rate 74 06/10/17 15:50 Respiratory Rate 13 06/10/17 15:50 Blood Pressure 132/63 06/10/17 15:50 Pulse Oximetry 93 06/10/17 15:50 Height and Weight: Height 5 ft 6 in Weight 77.5 kg Body Mass Index 27.5 - Medications Inpatient Medications: Current Medications Hydrocodone Bitart/Acetaminophen (Martelle 7.5/325) 1 tab PO BID PRN PRN Reason: Pain Last Admin: 06/05/17 00:13 Dose: 1 tab Albuterol/Ipratropium (Duoneb) 3 ml AEROSOL RTQID ON LICENSE OF [facility] Amlodipine Besylate (Norvasc) 5 mg PO DAILY ON LICENSE OF [facility] Last Admin: 06/10/17 08:49 Dose: 5 mg Benzonatate (Tessalon Perles) 200 mg PO TID PRN Last Admin: 06/10/17 00:31 Dose: 200 mg Chlorphenir/Hydrocodone Polistirex (Tussionex) 5 ml PO Q12H PRN PRN Reason: Cough Last Admin: 06/09/17 21:42 Dose: 5 ml Cholecalciferol (Vit. D-3) 1,000 unit PO DAILY ON LICENSE OF [facility] Last Admin: 06/10/17 08:48 Dose: 1,000 unit Ferrous Sulfate (Feosol) 324 mg PO WB ON LICENSE OF [facility] Last Admin: 06/10/17 08:46 Dose: 324 mg Furosemide (Lasix) 80 mg PO DAILY ON LICENSE OF [facility] Last Admin: 06/10/17 09:27 Dose: Not Given Gabapentin (Neurontin) 300 mg PO QAM ON LICENSE OF [facility] Last Admin: 06/10/17 08:48 Dose: 300 mg Gabapentin (Neurontin) 600 mg PO HS ON LICENSE OF [facility] Last Admin: 06/09/17 21:41 Dose: 600 mg Potassium Chloride/Sodium Chloride (Ns With Kcl 20 Meq) 1,000 mls @ 100 mls/hr IV .Q10H ON LICENSE OF [facility] Last Infusion: 06/10/17 13:39 Dose: 100 mls/hr Sodium Chloride (Normal Saline) 1,000 mls @ 50 mls/hr IV .Q20H ON LICENSE OF [facility] Last Admin: 06/10/17 16:00 Dose: 50 mls/hr Levalbuterol HCl (Xopenex 1.25mg/3ml) 1.25 mg AEROSOL RTQID ON LICENSE OF [facility] Last Admin: 06/10/17 15:17 Dose: 1.25 mg Magnesium Hydroxide (Mom) 30 ml PO DAILY PRN PRN Reason: Constipation Menthol (Ricola Sf) 1 lozenge MM PRN PRN PRN Reason: Cough Last Admin: 06/09/17 23:24 Dose: 1 lozenge Metoprolol Tartrate (Lopressor) 25 mg PO [facility] Last Admin: 06/09/17 21:42 Dose: 25 mg Pantoprazole Sodium (Protonix Iv) 40 mg IVP DAILY ON LICENSE OF [facility] Last Admin: 06/10/17 08:55 Dose: 40 mg Polyethylene Glycol (Miralax) 17 gm PO DAILY ON LICENSE OF [facility] Last Admin: 06/10/17 08:56 Dose: 17 gm Potassium Chloride (K-Dur 20 Meq Tablet) 20 meq PO WB ON LICENSE OF [facility] Last Admin: 06/10/17 09:27 Dose: Not Given Pravastatin Sodium (Pravachol) 20 mg PO HS ON LICENSE OF [facility] Last Admin: 06/09/17 21:42 Dose: 20 mg Prednisone (Deltasone 20 Mg) 20 mg PO WB ON LICENSE OF [facility] Last Admin: 06/10/17 08:48 Dose: 20 mg Senna/Docusate Sodium (Senna Plus Tablet) 1 tab PO BID ON LICENSE OF [facility] Last Admin: 06/10/17 08:47 Dose: 1 tab Sodium Chloride (Iv Flush) 10 - 80 ml IVF PRN PRN PRN Reason: Flushing Last Admin: 06/09/17 21:42 Dose: 10 ml Sodium Chloride (Normal Saline) 500 ml IV PRN PRN Sodium Phosphate (Fleet Enema) 1 enema [place] PRN PRN PRN Reason: Procedure Last Admin: 06/10/17 06:29 Dose: 1 enema Sucralfate (Carafate) 1 gm PO ACHS ON LICENSE OF [facility] Last Admin: 06/10/17 11:21 Dose: 1 gm Home Medications: Home Medications Medication Instructions Recorded Confirmed Type Apixaban [Eliquis] 5 mg PO BID #0 04/13/16 06/03/17 History Cholecalciferol [Vit. D-3] 1,000 unit PO DAILY #0 04/13/16 06/03/17 History Gabapentin 300 mg PO QAM #0 04/13/16 06/03/17 History Gabapentin 600 mg PO HS #0 04/13/16 06/03/17 History Lutein/Zeaxanthin 1 cap PO DAILY 09/28/16 06/03/17 History [Lutein-Zeaxanthin 25-5 mg Sfgl] Amiodarone HCl [Pacerone] 100 mg PO DAILY 05/31/17 06/03/17 History Amlodipine [Norvasc] 2.5 mg PO DAILY 05/31/17 06/03/17 History Furosemide [Lasix] 80 mg PO DAILY 05/31/17 06/03/17 History Hydrocodone/APAP 7.5/325 [Martelle 1 tab PO BID PRN 05/31/17 06/03/17 History 7.5/325] Metoprolol Tartrate [Lopressor] 25 mg PO HS 05/31/17 06/03/17 History Potassium Chloride [Klor-Con M20] 20 meq PO DAILY 05/31/17 06/03/17 History Pravastatin [Pravachol] 20 mg PO HS 05/31/17 06/03/17 History Is Patient on Beta Mike?: Yes - Medical History Respiratory: Reports: Pneumonia (2015), Upper Respiratory Infection (currently) DENIES: Sleep Apnea Cardiovascular: Reports: Abnormal EKG (afib), Coronary Artery Disease, Hypertension, Myocardial Infarction (2015) Gastrointestional: DENIES: Obstructive Bowel, Hepatitis, Cirrhosis, Nausea or Vomiting Present, Gastroesophageal Reflux Disease, Gastrointestinal Bleeding, Hiatal Hernia, Ulcer , Morbid Obesity, Other Neuro/Musculoskeletal: Reports: Cerebrovascular Accident (2015-affected her balance), Other (ARTHRITIS BILAT KNEES) Renal/Endocrine: DENIES: Diabetes Mellitus Type 1, Diabetes Mellitus Type 2, Renal Failure, Dialysis, Thyroid Disease, Weight Loss, Weight Gain, Other Other History: Reports: Blood Transfusions (no known reaction), Cancer (SCC left ankle, radiation, skin graft) - Surgical History HEENT Surgeries: Reports: Eye Surgery (tiff cataracts removed) Cardiac Surgeries/Treatments: Reports: Cardiac Catheterization (LINQ) GI Surgery/Treatments: Reports: Appendectomy (open, age 22; Expl lap; abd abscess), Hernia Repair Musculoskeletal Surgery/Tx: Reports: Other (screws in LT hip prev FX) Reproductive Surgery/Treatment: Reports: Hysterectomy, Mastectomy (left partial , reconstruction) Anesthesia Reactions: None Hx Family Anesthesia Reaction: No History of Motion Sickness: No - Social History Smoking Status: Former smoker Substance Use Type: does not use Alcohol Intake Frequency: does not drink - Pertinent Findings Laboratory: CBC and BMP 06/10/17 03:59 06/10/17 13:39 BMP 06/10/17 06/10/17 03:59 13:39 Sodium 143 Potassium 2.8 L* 4.1 D Chloride 106 Carbon Dioxide 31 H BUN 17.0 Creatinine 0.7 Glucose 88 Calcium 8.2 L EKG: Sinus Rhythm - Physical Exam Respiratory Exam: Present: lungs clear, bilateral breath sounds equal Cardiovascular Exam: Present: regular rate and rhythm, systolic murmur (mild- moderate) - Airway Assessment Mallampati Score: II TMD: 3 Fingerbreadths Neck Extension: fair Teeth: upper dentures Overall Assessment: may be difficult mask vent - ASA ASA Score: 3 - Plan Anesthesia: General TIVA - Discussion Discussion: Discussed risks/options/alternatives of anesthesia and questions answered. Patient consents. Nursing pain assessment noted. Present for Discussion: other (none) Attestation Statement: Prior to the delivery of any anesthetic medication, I examined the patient, developed the plan, obtained the patient's consent and discussed the risk and benefits of the procedure with the patient/guardian. - Additional Information Seen by Anesthesia: Yes
[2017-06-10] MEDS ORDERED: LIDOCAINE VISCOUS 2% ORAL LIQUID 15ml ONE (16:47)
[2017-06-10] MEDS ORDERED: PROPOFOL 500 MG/50 ML VIAL ONE (17:12)
--- NOTE | 2017-06-10 17:27 | Procedure Note ---
- Procedure Date/Time: Date: 06/10/17 Time: 1725 Surgeon: Jessica ASA Score: 3 Proceure: Colonoscopy with biopsies, EGD - Preoperative Diagnosis GI bleed - Postoperative Colonoscopy Diagnosis Same as preop diagnosis (normal colonoscopy) - Postoperative EGD Diagnosis Postoperative EGD Diagnosis: Same as preoperative diagnosis (normal EGD) - Complications Estimated Blood Loss: See Anesthesia Record. Vital Signs: See Anesthesia and PACU record.
--- NOTE | 2017-06-10 17:53 | Anesthesia Postoperative Note ---
- Date and Time Date: 06/10/17 Time: 17:52 - Status Patient Participated in Evaluation: Patient Participated in Person Vital Signs: Temperature 98.1 F 06/10/17 17:25 Pulse Rate 66 06/10/17 17:45 Respiratory Rate 14 06/10/17 17:45 Blood Pressure 117/56 06/10/17 17:45 Pulse Oximetry 91 06/10/17 17:45 Respiratory Function: Airway Patent Cardiovascular Function: Regular Pulse EKG: Sinus Rhythm Mental Status: Alert and Oriented Hydration: Taking PO Fluids Complications During Recover: None Apparent - Follow-Up Instructions Instructions: Per Surgeon
[2017-06-10] MEDS: PRAVASTATIN 20 MG TABLET PO SCH (21:41)
[2017-06-11] MEDS: SUCRALFATE 1 GM TABLET PO SCH ×2 (05:57→12:35)
[2017-06-11] MEDS: NS with KCL 20 mEq 1,000 ML IV SCH (06:18)
--- NOTE | 2017-06-11 09:26 | Operative Note ---
DATE OF SERVICE 06/10/2017 SURGEON Xavier Lopez MD PREOPERATIVE DIAGNOSIS Personal history of rectal bleeding, history for anemia requiring transfusions, personal history for microscopic colitis. POSTOPERATIVE DIAGNOSES Personal history of rectal bleeding, history for anemia requiring transfusions, personal history for microscopic colitis; normal EGD, normal colonoscopy. PROCEDURE Esophagogastroduodenoscopy, colonoscopy with random biopsies throughout colon via cold biopsy technique. ANESTHESIA TIVA BRIEF HISTORY/INDICATIONS Mrs. Ovi Arana is an 87-year-old female who is known to my surgical practice. It has been a number of years, however, since I have seen the patient. I was recently asked to see the patient as a result of her history for rectal bleeding and finding of anemia upon laboratory evaluation. The patient had influenza A with associated respiratory compromise. Empiric treatment for peptic ulcer disease was initiated. The patient was given blood transfusions as a result of her marked anemia and history for rectal bleeding. The patient had undergone a colonoscopy in the remote past that did reveal evidence for microscopic colitis. As a result of the above indications, it was recommended to the patient she undergo both a colonoscopy as well as an EGD for further evaluation. For completeness please refer to notes included in the patient's chart. FINDINGS Upon upper endoscopy, esophagus, stomach and duodenum were within normal limits. No ulcerations were noted. There was no evidence for old blood upon the surface of the mucosa. Despite her history for rectal bleeding, once again no marked abnormalities were noted. There was no evidence for blood upon the surface of mucosa within the colon. No evidence for angiodysplastic lesions, polyps, diverticula or grace malignancies. Given her prior history for colitis , several biopsies were obtained throughout the colon via cold biopsy technique. DESCRIPTION OF PROCEDURE After informed consent was obtained, the patient was brought to the endoscopy suite and placed on the table in left lateral decubitus position. The patient subsequently underwent total intravenous anesthesia by the nurse basket person per my request. Formal time-out was then completed. Next, an Olympus gastroscope was inserted in the oral hypopharynx and subsequently the esophagus under direct visualization. Gastroscope was advanced through the esophagus, stomach, pylorus, duodenal bulb, to second portion of duodenum. The scope was slowly withdrawn. First and second portions of the duodenum were within normal limits. No evidence of duodenitis or ulcerations were noted. The scope was withdrawn back to the prepyloric region and antrum. Again, the mucosa was found to be within normal limits. There was no evidence for gastritis or ulcerations. A J maneuver was then performed. Cardia and fundus were within normal limits. Endoscopically there was no evidence for hiatal hernia. The scope was allowed to straighten and slowly withdrawn. The remaining corpus of the stomach was well visualized and again without noted abnormalities. There was some "whitish material" upon the surface of the stomach which likely corresponded with the patient's Carafate. Gastric mucosa was irrigated and carefully inspected and again no abnormalities were noted. Gastroscope was withdrawn back to the level of the diaphragm. Squamocolumnar junction was located at the level of the diaphragm and was well demarcated with no endoscopic evidence for Rodriguez's metaplasia or distal esophagitis. Gastroscope was then continued to be slowly withdrawn and the remaining esophageal mucosa found within normal limits. Next, attention was directed towards performing a colonoscopy. First, digital rectal examination was performed. Normal sphincter tone. No rectal masses were appreciated. An Olympus colonoscope was inserted in the anus and advanced with the lumen of the colon under direct visualization at all times till the cecum was ascertained. Triangulation of taenia coli and ileocecal valve were identified. Bowel prep was not ideal and there was still some residual stool present. Irrigation was performed and the irrigant was suctioned until clear. The scope was then slowly withdrawn, again maintaining visualization of the lumen at all times. Random biopsies were obtained from the ascending colon, transverse colon , descending colon as the scope was being slowly withdrawn. There was no evidence for angiodysplastic lesions, polyps, diverticula or grace malignancies. Mucosa appeared normal throughout with no suggestion for significant colitis. Once the colonoscope was withdrawn back in the rectal vault, a J maneuver was performed. One could see some internal hemorrhoids but no worrisome perianal pathology was noted. The scope was allowed to straighten and withdrawn through the anal verge. The patient tolerated the procedure without difficulty and was sent back to the preop area in stable condition. At this time I do not have a good explanation for the patient's rectal bleeding. She was on Eliquis upon admission and she was found to have some moderate internal hemorrhoids. Perhaps rectal bleeding could have been a result of these internal hemorrhoids in conjunction with the Eliquis. We will await her random biopsies from her colon and proceed accordingly with further recommendations thereafter. DENTON
[2017-06-11] MEDS: AMLODIPINE 5 MG TABLET PO SCH (10:07)
[2017-06-11] MEDS: GABAPENTIN 300 MG CAPSULE PO SCH ×2 (10:07→21:54)
[2017-06-11] MEDS: BENZONATATE 200 MG CAPSULE PO PRN ×2 (10:07→23:16)
[2017-06-11] MEDS: FUROSEMIDE 80 MG TABLET PO SCH (10:08)
[2017-06-11] MEDS: PredniSONE 20 MG TABLET PO SCH (10:09)
[2017-06-11] MEDS: FERROUS SULFATE 324 MG TABLET PO SCH (10:09)
[2017-06-11] MEDS: PANTOPRAZOLE 40 MG INJECTION IVP SCH (10:11)
--- NOTE | 2017-06-11 12:12 | Pulmonology Progress Note ---
Subjective Principal diagnosis: Influenza A Interval history: Pt. is sitting up in bed resting comfortably. States she is feeling better, but still having SOB and coughing up thick sputum. Currently on 1L-NC. States she has been up walking in the hallways. Denies any hematochezia. Exam Vital signs: Temperature 98.1 F 06/11/17 07:21 Pulse Rate 67 06/11/17 07:21 Respiratory Rate 22 06/11/17 11:20 Blood Pressure 160/67 H 06/11/17 07:21 Pulse Oximetry 96 06/11/17 10:15 - Constitutional no acute distress, well nourished, well developed, cooperative - Routine HEENT Exam Head: Present: normocephalic, atraumatic Eye: Present: EOMI, PERRL ENT: Present: mucous membranes moist - Routine Neck Exam Present: supple, full ROM, trachea midline. Absent: JVD, carotid bruit - Routine Respiratory Exam Present: decreased breath sounds (Bilateral bases), wheezes (Expiratory), crackles. Absent: accessory muscle use Comments: faint crackles - Routine Cardiovascular Exam Present: RRR, S1, S2, murmur. Absent: gallop, rubs - Routine Abdominal Exam Present: soft, normoactive bowel sounds. Absent: tenderness, non tender - Routine Extremities Exam Present: no edema, non tender, pulses intact, normal capillary refill. Absent: cyanosis, clubbing - Routine Back/Spine/Pelvis Exam Back/Spine: Present: full ROM - Routine Skin Exam Present: intact, dry, warm. Absent: erythema - Routine Neurological Exam Present: alert, oriented X3, CN II-XII intact, normal speech - Routine Psychiatric Exam Present: normal thought process, good judgment Assessment and Plan - Assessment and Plan Acute respiratory failure with hypoxia Influenza A - s/p tamiflu Interstitial lung disease GI Bleed Plan: Pt. currently on 1L-NC, wean to keep SpO2 >90%, will plan for overnight oximetry and EXOX for home O2 needs. Currently on Xopenix QID and Prednisone 20mg D, will need to dismiss on Prednisone 20mg D until seen in clinic and remain off Amio. Stopped Amio and Eliquis due to GI bleed. s/p EGD and Colonoscopy with biopsies 06/10, per report normal EGD/Colonoscopy. Pt. received 2U PRBC, follow Hgb. Possibly home tomorrow if Hgb stable. Will continue to follow. - Time Spent With Patient Total time spent is greater than 50% in coordination of care (as documented) at patient's floor/unit and/or counseling patient: less than 15 minutes
--- NOTE | 2017-06-11 12:29 | Progress Note ---
- Date 06/11/17 Subjective: The patient was seen this morning in her room. She did become hypoxic this morning and is requiring 2 L of oxygen again. She continues to have been occasionally productive cough with yellow phlegm. She has chest pain with coughing only. She denies any abdominal pain. Her appetite is better today. She is urinating frequently after resuming her Lasix. She denies shortness of breath as long as she is on oxygen. Objective Vital signs: Temperature 98.1 F 06/11/17 07:21 Pulse Rate 67 06/11/17 07:21 Respiratory Rate 22 06/11/17 11:20 Blood Pressure 160/67 H 06/11/17 07:21 Pulse Oximetry 96 06/11/17 10:15 Rhythm: Normal Sinus Rhythm Height/Weight/BMI: Height 1.68 m Weight 78.3 kg Body Mass Index 27.5 Comments: Weight is 78.3 of 0.8 kg from yesterday. GEN-alert, oriented, no acute distress HEENT-sclera anicteric, oropharynx is moist NECK-supple, no JVD sitting up straight, minimal JVD lying down at 45 CV-regular rate and rhythm CHEST-crackles in the bases, no wheezing ABD-soft, nontender with positive bowel sounds -no Moore EXT-no edema NEURO-no focal deficits SKIN-warm and dry without rashes Results - Labs CBC & Chem 7: 06/11/17 07:49 06/11/17 07:49 Labs: Phosphorus is 2.9, calcium 8.5, albumin 2.8 Microbiology Results: Microbiology 06/06/17 10:49 Sputum, Induced Gram Stain - Final 06/06/17 10:49 Sputum, Induced Sputum Culture - Final Assessment and Plan (1) Influenza A Current visit: Yes Status: Acute (2) Anemia Problem details: microcytic; iron deficient Current visit: Yes Status: Acute (3) Acute respiratory failure with hypoxia Current visit: Yes Status: Acute Assessment and Plan: Impression Acute respiratory failure with hypoxemia-influenza A-finished Tamiflu Possible pneumonitis-on prednisone [address] chest with ground glass opacities, concerning for pulmonary edema versus hypersensitivity pneumonitis versus drug reaction versus pulmonary Alveolar proteinosis versus other-Dr. Cheney was consulted and is concerned about possible amiodarone toxicity. Amiodarone was discontinued. Anemia-present on admission, hemoglobin 6.9, s/p 2U PRBC transfusion. Hemoglobin is 9.1 today. Influenza A GI bleed on eliquis-eliquis on hold.colonoscopy and EGD yesterday were normal Fluid overload -improved-home Lasix restarted Thrombocytopenia- ? acute on chronic A-fib Hypertension Hyperlipidemia Fibromyalgia Chronic anticoagulation-on hold Hypokalemia-resolved Plan Overall, the patient is doing a little better today. She is requiring 2 L of oxygen currently. Discussed with JEREMY Cárdenas with Dr. Cheney. We'll check overnight oximetry and ambulatory oximetry. Possible dismissal tomorrow. Pulmonology recommends continuing off of amiodarone. They also recommended continuing prednisone 20 mg daily and following up in 2-3 weeks for pulmonary function testing. EGD and colonoscopy yesterday were normal. We'll discuss with Dr. Lopez whether or not the patient should stay off of anticoagulation, and possibly take aspirin instead for stroke prophylaxis with her A. fib. We'll discuss with Dr. Bird, raisin washer Repeat CBC and basic metabolic profile tomorrow. PT and OT did evaluate the patient and recommended home with home health Discontinue Carafate and Protonix with normal EGD findings DVT Prophylaxis: SCD's - Time spent with patient Time with patient PN: 35 minutes - Physician Narrative Narrative: Date: 06/11/17 Time: 1226 Hospital Course Summary Disclaimer: The visit summary below is not to be considered part of the above Progress Note. Hospital Course: 06/03 Admit patient to inpatient status under care of Dr. James for acute respiratory failure with hypoxia and anemia Continue on oxygen to maintain adequate saturations. Will add scheduled DuoNeb breathing treatments 4 times a day. Did add oral Tylenol with codeine, even significant coughing as well as body aches. Will continue on Tamiflu for 3 additional days given Influenza A. End date . She did receive IV Levaquin while in the emergency room. Will not continue since known viral process. Given anemia, we will type and screen and give 1 unit packed red blood cells. Stop Eliquis. Obtain serum iron levels. Monitor PLT count- Chronically low. Followed by Dr Wyatt. ? ITP Monitor on cardiac telemetry SCDs to bilateral lower extremity for DVT prophylaxis. Patient does wish to be a full code and this orders written. CT chest for eval of abn on CXR. At time of discharge medical care is to return to PCP Dr Staples 06/04 Hgb remains low at 7.0- Transfusion on 1 unit of PRBCs today CT of the chest done this morning reveling opacity throughout bilaterally, exact etiology is unclear Continued hypoxia requiring 4 liters with crackles and wheezing. Overall coughing seems to be improved on Tessalon pearls and Tussionex syrup She continues on Tamiflu, course will end tomorrow 06/05. Continued blood in stool. Appreciate Dr. Lopez's consultation. Continue to follow blood counts carefully, continued thrombocytopenia 06/05 Sig. increase in oxygen requirement combined with 5+ kg weight gain --> IVF dc' d and Lasix IV ordered for diuresis. CT scan chest yesterday supports pulmonary edema with groundglass opacities. CXR ordered, personally reviewed -- severe pulm edema. Abdominal distention, GI bleed -- Dr. Lopez has been consulted & recommends bidirectional endoscopy. Start MiraLAX and Senna Plus. Cont PPI. WBC increased to 15 (? stress rxn). Hgb 9.0 s/p transfusion. Plt improved to 72. Anticoagulation contraindicated. Tamiflu course will be completed today. 06/06 Oxygenation improving with diuresis, supplemental dose Lasix given at noon today. Repeat chest x-ray tomorrow. Echocardiogram done by Dr. Bird within the past couple of months-will not repeat. Continue to monitor hemoglobin-relatively stable since second transfusion 2 days ago. Eliquis remains on hold due to GI blood loss. Due to precarious respiratory status endoscopic studies are on hold. White count modestly elevated due to stress/steroids. Blood pressures trending up-amlodipine increased to 5 mg daily. 06/07 Oxygenation is improved significantly and chest x-ray improved as well. Currently on 1 L oxygen. IV Lasix discontinued due to poor oral intake, steroids converted to oral administration. Hemoglobin stable, discussed with Dr. Lopez-possible endoscopic studies on Saturday. Iron studies back and consistent with marked iron deficiency - patient does not recall being on iron in the past, oral replacement initiated. Platelet count improving. 06/08/2017 Patient is still requiring 1 L of fluid. She was receiving IV Lasix until today. She has not received any Lasix today yet. Will give 1 dose of Lasix 40 mg IV now and then start her usual 80 mg of Lasix by mouth daily starting tomorrow. We'll decrease prednisone to 20 mg daily starting tomorrow. Repeat CBC and basic metabolic profile tomorrow. We'll check a PA and lateral chest x-ray tomorrow. Likely undergo EGD and colonoscopy on Saturday. She will start clear liquids with lung tomorrow. We'll give an additional dose of potassium for hypokalemia. Blood pressure this morning was 164/70. We'll continue to monitor. Norvasc started 5 mg 06/07/2017 Continue oral iron for iron deficiency. 06/09/2017 The patient still had some pulmonary edema on chest x-ray today, but no JVD and weight is below her admission weight. Her usual 80 mg of Lasix orally was started this morning. She did have hypokalemia and she was given oral potassium this morning. Magnesium and phosphorus are normal. Hemoglobin is stable. She has started her prep for colonoscopy tomorrow. She will also receive EGD. Will repeat chest x-ray tomorrow. Repeat CBC and basic metabolic profile tomorrow. Continue off of anticoagulation. Blood pressure is still borderline high, Norvasc 5 mg started recently. We'll continue to monitor. 06/10/2017 Plan EGD and colonoscopy later today Replace potassium orally and IV. Recheck potassium after IV replacement She does have JVD today, so we'll give her Lasix now with an extra potassium. Chest x-ray shows worsening today, question whether this is edema versus other cause. With her prolonged abnormalities on chest x-ray, will consult Dr. Cheney for further evaluation. Discussed with JEREMY Cárdenas for Dr. Cheney. Repeat CBC and basic metabolic profile tomorrow. Add DuoNeb breathing treatments. May need additional antihypertensives if blood pressure is not improving. Discussed with Dr. Lopez
[2017-06-11] MEDS: PRAVASTATIN 20 MG TABLET PO SCH (21:54)
[2017-06-11] MEDS: SALINE FLUSH 10ml SYRINGE IVF PRN (21:55)
[2017-06-11] MEDS ORDERED: FALL RISK - PHARMACY CONSULT MC ONE (22:02)
[2017-06-12] MEDS ORDERED: OMEPRAZOLE 20 MG CAPSULE PO SCH (06:30)
[2017-06-12] MEDS: PredniSONE 20 MG TABLET PO SCH (08:50)
[2017-06-12] MEDS: FERROUS SULFATE 324 MG TABLET PO SCH (08:50)
[2017-06-12] MEDS: GABAPENTIN 300 MG CAPSULE PO SCH (08:50)
[2017-06-12] MEDS: FUROSEMIDE 80 MG TABLET PO SCH (08:50)
[2017-06-12] MEDS: AMLODIPINE 5 MG TABLET PO SCH (08:50)
--- NOTE | 2017-06-12 11:34 | Pulmonology Progress Note ---
Subjective Principal diagnosis: Influenza A Interval history: Pt. is sitting up in bed resting comfortably. States still has some cough with minimal sputum, wanting to go home today. Exam Vital signs: Temperature 96.8 F 06/12/17 08:53 Pulse Rate 67 06/12/17 08:53 Respiratory Rate 18 06/12/17 08:53 Blood Pressure 157/67 H 06/12/17 08:53 Pulse Oximetry 93 06/12/17 08:53 - Constitutional no acute distress, average body habitus, cooperative - Routine HEENT Exam Head: Present: normocephalic, atraumatic Eye: Present: EOMI, PERRL ENT: Present: mucous membranes moist - Routine Neck Exam Present: supple, full ROM, trachea midline - Routine Respiratory Exam Present: crackles. Absent: accessory muscle use Comments: crackles to bases - Routine Cardiovascular Exam Present: RRR, S1, S2, no murmur - Routine Abdominal Exam Present: soft, normoactive bowel sounds - Routine Extremities Exam Present: no edema, non tender, full ROM - Routine Back/Spine/Pelvis Exam Back/Spine: Present: full ROM - Routine Skin Exam Present: intact, dry - Routine Neurological Exam Present: oriented X3, CN II-XII intact - Routine Psychiatric Exam Present: normal affect, normal thought process Assessment and Plan - Assessment and Plan Acute respiratory failure with hypoxia Influenza A - s/p tamiflu Interstitial lung disease GI Bleed Plan: Pt. currently on RA, per ExOx requires O2 at 1L per NC with ambulation, JOSÉ ANTONIO showed sats <88% for 25min, would benefit from O2 at 1L at [facility] also. Currently on Xopenix QID and Prednisone 20mg daily. Stopped Amio and Eliquis due to GI bleed. s/p EGD and Colonoscopy with biopsies 06/10, per report normal EGD/ Colonoscopy. Pt. received 2U PRBC, follow Hgb. Will need to dismiss on Prednisone 20mg daily until seen in clinic and remain off Amio, need a PFT and CXR in 2-3 weeks with appt in [place]. Ok to dismiss from pulm when ok with primary. - Time Spent With Patient Total time spent is greater than 50% in coordination of care (as documented) at patient's floor/unit and/or counseling patient: less than 15 minutes
[2017-06-12 11:35] VITALS: TEMP 97.6
--- NOTE | 2017-06-12 15:50 | Discharge Summary ---
Discharge Information Date of admission: 06/03/17 07:41 Anticipated date of discharge: 06/12/17 Attending Physician: Elina Casanova MD Primary care physician: Hiram Staples MD Consults: 06/03/17 14:11 Physician Consult [CONS] Routine Consulting Provider: Xavier Lopez Reason For Exam: rectal bleeding Ordering Provider has Notified Agent Broker: Yes 06/10/17 11:21 Physician Consult [CONS] Routine Consulting Provider: Xavier Cheney Reason For Exam: abnormal chest xray and ct Ordering Provider has Notified Agent Broker: Yes - Discharge Diagnosis (1) Influenza A Status: Acute (2) Anemia Status: Acute (3) Acute respiratory failure with hypoxia Status: Acute Acute respiratory failure with hypoxemia-influenza A-finished Tamiflu Nocturnal hypoxemia requiring 1 L of oxygen with sleep Ambulatory hypoxemia requiring 1 L of oxygen with ambulation Possible pneumonitis-on prednisone 20 mg daily Interstitial lung disease Possible amiodarone toxicity Anemia-present on admission, hemoglobin 6.9, Influenza A GI bleed on eliquis-eliquis discontinued.colonoscopy and EGD were normal Fluid overload -improved-home Lasix restarted Thrombocytopenia- ? acute on chronic A-fib Hypertension Hyperlipidemia Fibromyalgia Hypokalemia-resolved - Procedures Procedures: DATE OF SERVICE 06/10/2017 SURGEON Xavier Lopez MD PREOPERATIVE DIAGNOSIS Personal history of rectal bleeding, history for anemia requiring transfusions, personal history for microscopic colitis. POSTOPERATIVE DIAGNOSES Personal history of rectal bleeding, history for anemia requiring transfusions, personal history for microscopic colitis; normal EGD, normal colonoscopy. PROCEDURE Esophagogastroduodenoscopy, colonoscopy with random biopsies throughout colon via cold biopsy technique. - Laboratory Labs: 06/12/17 07:45 06/12/17 07:45 Laboratory Tests 06/03/17 06/03/17 06/03/17 05:43 05:43 05:43 Hgb 6.9 L Plt Count ABG pH ABG pCO2 ABG pO2 ABG HCO3 ABG Total CO2 ABG O2 Saturation ABG Base Excess FiO2 (liters per min) Iron 12 L TIBC 288 % Saturation 4 L Total Bilirubin 1.20 Conjugated Bilirubin 0.00 Unconjugated Bilirubin 0.90 Icterus Index < 2 AST 50 H ALT 29 Alkaline Phosphatase 77 Total Protein 6.9 Albumin 3.8 Globulin 3.1 Albumin/Globulin Ratio 1.2 Plasma Lactate 1.7 Stool Occult Blood 02/05/18 02/05/18 02/05/18 08:35 13:16 15:35 Hgb 7.8 L D Plt Count ABG pH ABG pCO2 ABG pO2 ABG HCO3 ABG Total CO2 ABG O2 Saturation ABG Base Excess FiO2 (liters per min) Iron TIBC % Saturation Total Bilirubin Conjugated Bilirubin Unconjugated Bilirubin Icterus Index AST ALT Alkaline Phosphatase Total Protein Albumin Globulin Albumin/Globulin Ratio Plasma Lactate 1.7 Stool Occult Blood Positive A 06/03/17 06/04/17 06/04/17 20:07 01:11 07:53 Hgb 7.9 L 7.4 L 7.0 L Plt Count 60 L ABG pH ABG pCO2 ABG pO2 ABG HCO3 ABG Total CO2 ABG O2 Saturation ABG Base Excess FiO2 (liters per min) Iron TIBC % Saturation Total Bilirubin Conjugated Bilirubin Unconjugated Bilirubin Icterus Index AST ALT Alkaline Phosphatase Total Protein Albumin Globulin Albumin/Globulin Ratio Plasma Lactate Stool Occult Blood 06/04/17 06/05/17 06/05/17 15:23 04:09 16:43 Hgb 8.9 L D 9.0 L Plt Count 72 L ABG pH 7.400 ABG pCO2 36 ABG pO2 69 L ABG HCO3 22 ABG Total CO2 23.4 ABG O2 Saturation 94.0 L ABG Base Excess -2.1 L FiO2 (liters per min) 8 Iron TIBC % Saturation Total Bilirubin Conjugated Bilirubin Unconjugated Bilirubin Icterus Index AST ALT Alkaline Phosphatase Total Protein Albumin Globulin Albumin/Globulin Ratio Plasma Lactate Stool Occult Blood 06/12/17 07:45 Hgb 8.7 L Plt Count ABG pH ABG pCO2 ABG pO2 ABG HCO3 ABG Total CO2 ABG O2 Saturation ABG Base Excess FiO2 (liters per min) Iron TIBC % Saturation Total Bilirubin Conjugated Bilirubin Unconjugated Bilirubin Icterus Index AST ALT Alkaline Phosphatase Total Protein Albumin Globulin Albumin/Globulin Ratio Plasma Lactate Stool Occult Blood - Radiology Radiology: Date of Exam: 06/04/17 Type of Exam(s): CT chest w con Reason for Exam(s): rounded densities right lung Indication: rounded densities right lung PROCEDURE: CT chest w con: Encounter: Initial Comparison: Chest x-ray dated June 03, 2017 Technique: Axial CT images were performed through the chest after the administration of intravenous contrast. Coronal and sagittal two-dimensional reformats. Automated Exposure Control and Iterative Reconstruction dose reducing techniques were utilized. Contrast: Omnipaque 300 62 mL Findings: Groundglass opacity seen scattered throughout both lungs with a seemingly randomly distributed and. Small bilateral pleural effusions. No pneumothorax. No lobar consolidation. No dominant pulmonary nodules or masses. The central airways are patent. No axillary adenopathy. There is a cystic lesion in the right posterior paravertebral mediastinum best seen on axial image #21 measuring 3.3 cm in diameter. This could represent a neurogenic tumor or duplication cyst. Mildly prominent right paratracheal lymph nodes are present that could be reactive. Heart is mildly enlarged without pericardial effusion. Atherosclerotic plaque in the great vessel origins. The upper abdomen shows no acute findings. There is atrophy of the pancreatic tail. Impression: 1. Bilateral groundglass opacities most likely representing pulmonary edema given the small effusions. Less likely etiologies include hypersensitivity pneumonitis/drug reaction and pulmonary alveolar proteinosis. 2. 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 . Date of Exam: 06/10/17 Type of Exam(s): XR chest 1V Reason for Exam(s): pulm edema, hypoxia EXAM: XR chest 1V 0556 hours COMPARISON: 06/09/2017. 06/07/2017. 10/16/2009. HISTORY: pulm edema, hypoxia . FINDINGS:EKG leads and wires project over the chest. The heart is enlarged. Telemetry device is seen projecting over the mid heart. The pulmonary vascularity is indistinct. Increased interstitial markings are seen throughout the lungs. There may be some coalescent opacity at the right upper lung and left lung base. There is mild blunting of the left costophrenic angle. There is no evidence for a pneumothorax. No osseous abnormalities are identified. IMPRESSION: 1. Cardiomegaly. 2. Increased interstitial markings with coalescent opacity at the right upper lung and left lung base which may represent mild congestion and coalescent infiltrates. This appears worse compared to the prior exam. LOCATION OF DICTATION: [facility] . History of Present Illness HPI: Terri is a pleasant 87 yr old female who has had upper respiratory infection with persistent cough for 5 days. She was seen in the emergency room on 05/31/17 for evaluation of coughing. At that time she was found to have influenza A, and was started on Tamiflu. Over the past 2 days her symptoms have gotten progressively worse and she began feeling more short of breath. This morning she activated EMS, she was found to be significantly hypoxic at 79% on room air. Acute evaluation was performed in the emergency room. White count was found to be normal at 5.9, hemoglobin found to be significantly low at 6.9, hematocrit 23.7, platelet count 81 with 73% neutrophils. Chemistry panel unremarkable. Chest x-ray did reveal a interstitial opacity of unknown cause. She continued to require oxygen 2-3 liters to maintain adequate saturations. Given the severity of her hypoxia, the hospitalist services were contacted and accepted patient for inpatient admission for further evaluation and treatment. She is seen on initial examination. She is alert, oriented and pleasant. She has a persistent dry cough throughout entire examination. She is admit to feeling short of breath at times, however denies having any chest pain. She does complain of midthoracic back pain with intermittent generalized body aches. He also reports having black tarry stool for approximately 1-2 months. She did note recently there is blood present in the stool. She chronically does take Eliquis for anticoagulation given atrial fibrillation and history of CVA. Patient does report having anemia in the past following back surgery, she did require blood transfusion at that time. She reports that she was evaluated by a "blood doctor" years ago however he dismissed her. Did discuss advanced directives she does wish to be a full code. Objective Vital signs: Temperature 97.6 F 06/12/17 11:33 Pulse Rate 70 06/12/17 11:33 Respiratory Rate 12 06/12/17 13:13 Blood Pressure 156/67 H 06/12/17 11:33 Pulse Oximetry 96 06/12/17 13:13 Rhythm: Normal Sinus Rhythm Height/Weight/BMI: Height 1.68 m Weight 76.4 kg Body Mass Index 27.5 Comments: On the day of discharge the patient is alert and oriented 3. She is on room air at rest. Chest reveals minimal crackles in the bases. Cardiovascular reveals a regular rate and rhythm. Abdomen is soft and nontender. Extremities are free of edema. Hospital Course This is a general summary of the patient's hospital course. For more details refer to the complete medical record. Hospital course: The patient was admitted on 06/03/2017 for acute hypoxic respiratory failure with anemia. She had previously been diagnosed with influenza and had received 2 days of Tamiflu. The patient was given oxygen and breathing treatments. She had tremulousness with albuterol but tolerated Xopenex fairly well. Tamiflu was course was completed for influenza. Regarding her anemia, She was given 1 unit of packed red cells on 06/03/2017 for hemoglobin of 6.9. She was then given another unit of packed red cells on as hemoglobin had fallen back to 7. She was noted to have Hemoccult- positive stools and stools were melanotic with some red blood as well. The patient had been on eliquis for prevention of stroke with A. fib. Eliquis was discontinued. Dr. Lopez was consulted. The patient did undergo EGD and colonoscopy and these were essentially normal. The source of her bleeding is not known but she did have hemorrhoids. Hemorrhoidal bleeding would not necessarily explain her melanotic appearing stools. After discussion with Dr. Lopez in the patient's tip mender Dr. Bird, we decided that the patient should not restart Eliquis, but would take aspirin 81 mg once daily for stroke prevention. During the hospital course, the patient did develop fluid overload requiring diuresis. At the time of discharge she is euvolemic and back on her usual diuretics. During the workup of her hypoxia, CT chest was obtained and was abnormal. Please see results above. Dr. Cheney was consulted and was concerned for interstitial lung disease. Patient had been started on prednisone 20 mg once daily which he recommended continuing. He was also concerned for possible amiodarone toxicity and her amiodarone was discontinued. Dr. Bird was notified of this recommendation, and he was in agreement with the patient remaining off of amiodarone. Over the hospital course, the patient continued to show improvement. She was up walking without lightheadedness or chest discomfort. JEREMY Cárdenas with Dr. Cheney did recommend O2 at 1 L per nasal cannula with ambulation. Overnight oximetry showed oxygen saturations below 88% for 25 minutes and she recommended O2 at 1 L per nasal cannula at night. We are trying to confirm whether she will qualify for home O2 as her insurance. On 06/12/2017 was felt that the patient was stable for dismissal to home with home health. The patient states she is strongly ready for discharge today. Time spent with patient: greater than 35 minutes Resuscitation Status: Full Code Discharge Plan - Discharge Disposition Disposition: [facility] Service *Condition: Stable Reason For Visit (Visit label in EMR): anemia with GI bleed, hypoxia,influenza - Discharge Medications *Discharge Medications: New Amlodipine [Norvasc] 5 mg PO DAILY #30 tab Benzonatate [Tessalon Perles] 200 mg PO TID PRN #10 cap PRN Reason: Cough Ferrous Sulfate [Feosol] 324 mg PO WB #60 tab Levalbuterol 1.25mg/3ml NEB [XOPENEX 1.25mg/3ml] 1.25 mg AEROSOL RTQID #120 each Omeprazole [Prilosec] 20 mg PO ACB #30 cap PredniSONE [Deltasone 20 mg] 20 mg PO WB #30 tab Aspirin 1 tab PO DAILY #30 tab Continue Cholecalciferol [Vit. D-3] 1,000 unit PO DAILY #0 Lutein/Zeaxanthin [Lutein-Zeaxanthin 25-5 mg Sfgl] 1 cap PO DAILY Potassium Chloride [Klor-Con M20] 20 meq PO DAILY Metoprolol Tartrate [Lopressor] 25 mg PO HS Pravastatin [Pravachol] 20 mg PO HS Hydrocodone/APAP 7.5/325 [[place] 7.5/325] 1 tab PO BID PRN PRN Reason: Pain Gabapentin 300 mg PO QAM #0 Gabapentin 600 mg PO HS #0 Furosemide [Lasix] 80 mg PO DAILY Discontinued Amiodarone HCl [Pacerone] 100 mg PO DAILY Apixaban [Eliquis] 5 mg PO BID #0 Amlodipine [Norvasc] 2.5 mg PO DAILY Oseltamivir Cap [Tamiflu] 75 mg PO BID #10 cap - Discharge Packet/Instructions *Diet: Cardiac diet *Activity: Up with walker *Pain Management/Treatment: Tylenol or [place] as needed for pain *Wound Care: Not applicable Additional Instructions: You can take omeprazole/Prilosec once daily before breakfast for stomach protection while you're on prednisone. Oxygen at 1 L per nasal cannula with activity and 1 L per nasal cannula with sleep *Expected Signs/Symptoms: Mild fatigue, mild cough *Notify Physician if: Notify your physician or return to the emergency room ( for severe symptoms) if you have bloody stools, tarry stools, shortness of breath or lightheadedness. Call 911 if you have chest pain or symptoms of a stroke. *During Business Hours Contact: Call Dr. Staples's office *After Business Hours Contact: Called [phone] to have your physician paged *Pending Lab/Results: No Pending Lab - Referrals/Follow Up *Referrals/Follow Up: Anisa Bird MD [Physician] - (See Dr Bird on Jun 17 in his [place] office) Xavier Cheney MD [Physician] - 2 Weeks Hiram Staples MD [Family Provider] - 1 Week - Patient Handouts Patient Handouts: Anemia (GEN), Hypoxia (GEN) - Dismissal Complete Discharge Instructions are:: Complete Physician Narrative - Narrative Attestation Narrative: Date: 06/12/17 Time: [id number]
[2017-06-12 17:07] VITALS: BP 146/68; PULSE 67; RESP 18; O2SAT 91
== END 2017-06-12 19:45 | disposition home health service (06) | DRG 193 ==
LOC: ED 05:15 → SUATTDRO 07:41 → MED 07:41
PROVIDERS: ADMIT Internal Medicine; ATTEND Internal Medicine
PROC: END.EGD (2017-06-10 15:30)